=== PATIENT | male | born 1965 | race Caucasian/White ===

== ENCOUNTER 2025-06-07 12:51 | Outpatient (RCR) | payer BC, SELFPAY | END 2025-07-22 08:00 | disposition home or self-care (01) | LOC: CR 12:51 | PROVIDERS: Visit Provider Student in an Organized Health Care Education/Training Program | DX: I25.10 Atherosclerotic heart disease of native coronary artery without angina pectoris (principal); Z95.1 Presence of aortocoronary bypass graft | CPT/HCPCS: 93798 ==

== ENCOUNTER 2025-07-02 14:17 | Outpatient (CLI) | payer BC, SELFPAY ==
--- OUTSIDE RECORDS SUMMARY | 2025-07-02 14:20 | XMS_ITS | Encounter Summary ---
Author Organization [facility] Address [address] [place] [address] Care Team Providers Care Asset Protection Officer Name Role Phone Graciela Mario Primary Care Provider [phone] Jagruti Ferrari MD Unavailable [phone] Encounter Details Date Type Department Care Team (Late st Contact Info) Description 05/14/2025 Orders Only [facility] Cardiothoracic [address], [address] [place] [address] Facundo Núñez PA [address] [place] [address] Social History Tobacco Use Types Packs/Day Years Used Date Smoking Tobacco: Never Smokeless Tobacco: Never Alcohol Use Standard Drinks/Week Comments Never 0 (1 standard drink = 0.6 oz pur e alcohol) PHQ-2 Answer Date Recorded Patient Health Questionnaire-2 Score 0 04/29/2025 Humiliation, Afraid, Rape, and Kick questionnair e Answer Date Recorded Within the last year, have y ou been afraid of your partner or ex-partner? No 04/05/2025 Within the last year, have y ou been humiliated or emotionally abused in other ways by your partner or ex-partner? No Within the last year, have y ou been kicked, hit, slapped, or otherwise physically hurt by your partner or ex-partner? No 04/05/2025 Within the last year, have y ou been raped or forced to have any kind of sexual activity by your partner or ex-partner? No 04/05/2025 AUDIT-C Answer Date Recorded Frequency of Alcohol Consumption Not on file 04/29/2025 Average Number of Drinks Not on file 025 Q3: How often do you have si x or more drinks on one occasion? Never 04/29/2025 Hunger Vital Sign Answer Date Recorded Within the past 12 months, y ou worried that your food would run out before you got the money to buy more. Never true 04/05/20 25 Within the past 12 months, t he food you bought just didn't last and you didn't have money to get more. Never true 04/05/2025 PRAPARE - Transportation Answer Date Re corded In the past 12 months, has l ack of transportation kept you from medical appointments or from getting medications? No 03/18 In the past 12 months, has l ack of transportation kept you from meetings, work, or from getting things needed for daily living? No 04/05/2025 Housing Stability Vital Sign Answer Rene e Recorded In the last 12 months, was t here a time when you were not able to pay the mortgage or rent on time? No 04/05/2025 Number of Times Moved in the Last Year Not on fi le 04/05/2025 At any time in the past 12 m [facility], were you homeless or living in a alf (including now)? No 04/05/2025 CAGE ASSESSMENT Answer Date Recorded Cage unable to access Not on file 04/03/2025 Cage max number of drinks Not on file 2024 Cage Beverages a week Not on file 04/03/2025 Have you ever felt you should CUT down on your d rinking? 0 04/03/2025 Have you been ANNOYED by people criticizing your drinking? 0 04/03/2025 Have you felt GUILTY about your drinking? 0 04/03/2025 Have you had a drink first t ian in the morning (EYE-CEO) to steady your nerves or to get rid of a hangover? 0 04/03/2025 CAGE Questionnaire Score 0 025 Utilities Answer Date Recorded In the past 12 months has th e electric, gas, oil, or water company threatened to shut off services in your home? No 04/05/2025 Sex and Gender Information Value Date Recorded Sex Assigned at Not on file Legal Sex Male 3:37 AM EDT Gender Identity Not on file Sexual Orientation Not on file documented as of this encounter Plan of Treatment Not on file documented as of this encounter Visit Diagnoses Not on filedocumented in this encounter Additional Health Concerns Assessment Noted Time A fall risk assessment has been complete d for the patient 04/29/2025 9:38 AM EDT A Body Mass Index follow-up plan has been documented for the patient 04/29/2025 10:13 AM EDT documented as of this encounter Care Teams Asset Protection Officer Relationship Specialty Start Date End Date Graciela Mario PA [address] [place] [address] PCP - General 03/03/25 Jagruti Ferrari MD [address] [place] [address] [place] [address] Referring Physician 04/09/25 documented as of this encounter
--- OUTSIDE RECORDS SUMMARY | 2025-07-02 14:21 | XMS_ITS | Patient Health Record ---
Author Organization [facility] Address [address] [place] [address] Care Team Providers Care Gauger Chief Name Role Phone KIM ARNOLD Unavailable [phone] Reason For Referral No Information Medications Medication SIG (Take, Route, Fr equency, Duration) Notes Start Date End Date Status Tamsulosin HCl 0.4 MG 1 capsule Orally O nce a day; Duration: 30 day(s) Active Cipro 500 MG 1 tablet Orally ever y 12 hrs; Duration: 10 day(s) Active Social History Tobacco Use: Social History Observation Description Date Details (start date - stop date) Never Smoker NA - NA Tobacco Use/Smoking Question Answer Notes Are you a nonsmoker Additional Findings: Tobacco Non-User Current no n-smoker Problems Problem Type SNOMED Code ICD Code Onset Dates Problem Status W/U Status Risk Notes Problem Bladder neck obstruction (788388899) 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 Problem single functional kidney (finding) (810633680) Solitary kidney (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.0) Active confirmed Problem Obstructive uropathy (1727591) Obstructive uropathy (N13.9) Active confirmed Plan Of Treatment No Information Insurance Providers Payer Name Payer Address Payer Phone Subscriber Number Group Number Insured Name Patient Relationship to Insured Coverage Start Date Coverage End Date [employer] [address] [address] [place] [address] [id number] Brandt Malik Self - patient is the insured Medical (General) History Medical History History ICD Code Donated kidney Prostitus Infection Surgical History Surgery Date(Month/Year) Donated Kidney 08/2012 Hospitalization History Reason Date(Month/Year) Donated Kidney 08/2019
--- OUTSIDE RECORDS SUMMARY | 2025-07-02 14:21 | XMS_ITS | Clinical Summary ---
Author Organization [facility] Address [address] [place] [address] Care Team Providers Care Informatics Physician Name Role Phone FabianoGraciela DONALD Primary Care Provider [phone] Jagruti Ferrari MD Unavailable [phone] Allergies No known active allergies Medications acetaminophen (Tylenol) 325 MG tablet Take 1 tablet by mouth every 4 hours as needed for pain. Under [place] law, monthly prescriptions (30 days) can be refilled at 25 days and three-month prescriptions (90 days) at 80 days. Please contact the insurance company with questions if refills are denied. 100 tablet 04/13/20 25 Active bisacodyl (Dulcolax) 10 MG suppository Insert 1 suppository into the rectum daily as needed for constipation. 12 suppository 04/13/20 25 Active methocarbamol (Robaxin) 500 MG tablet Take 1 tablet by mouth 4 times a day. 30 tablet 04/13/20 25 Active Additional Information Patient not taking.Reported on 04/29/2025 naloxone (Narcan) 4 mg/0.1 mL nasal spray 1. Give 1 spray in nostril for no/slow breathing or cannot wake after opioid use 2. Call 911 3. Repeat in other nostril if symptoms continue 1 each 04/13/20 25 Active nitroglycerin (Nitrostat) 0.[address] 1 tablet under the tongue every 5 minutes as needed for chest pain. Active aspirin 81 MG chewable tablet Chew 1 tablet daily. 30 tablet 3 05/14/20 25 025 Active atorvastatin (Lipitor) 80 MG tablet Take 1 tablet by mouth nightly. 30 tablet 3 07/29 025 Active ezetimibe (Zetia) 10 MG tablet Take 1 tablet by mouth nightly. 30 tablet 3 05/14/20 Active metoprolol tartrate (Lopressor) 50 MG tablet Take 1 tablet by mouth 2 times a day. 60 tablet 3 05/14/20 Active Active Problems Problem Noted Date Diagnosed Date BMI 32.0-32.9,adult 04/29/2025 S/P CABG x 4 04/10/2025 Assessment & Plan (04/10/2025 2:50 PM EDT): -d/c lines as appropriate - ASA, statin, and BB as appropriate Type 2 diabetes mellitus, wi thout long-term current use of insulin 04/05/2025 Assessment & Plan (04/10/2025 2:50 PM EDT): - SSI Assessment & Plan (04/10/2025 7:31 AM EDT): -Insulin gtt -Transition to SSI as appropriate CAD, multiple vessel 04/03/2025 Assessment & Plan (04/10/2025 2:50 PM EDT): Presented to OSH with chest pain and hypertensive crisis LHC at OSH with severe ostial LAD, OM, and PD Now S/P CABG with Dr. Simon 04/09/25 Multimodal pain control ASA, Statin, BB OOB/PT/OT Daily labs and chest xray Assessment & Plan (04/10/2025 7:31 AM EDT): Presented to OSH with chest pain and hypertensive crisis LHC at OSH with severe ostial LAD, OM, and PD Now S/P CABG with Dr. Simon 04/09/25 Multimodal pain control ASA, Statin, BB OOB/PT/OT Daily labs and chest xray Assessment & Plan (04/03/2025 7:16 AM EDT): Presented to OSH with chest pain and hypertensive crisis LHC at OSH with severe ostial LAD, OM, and PD Continue heparin gtt. Repeat troponin, P2Y12, EKG, ECHO pending PFTs, LE dopplers, carotid US, CT chest without pending Cardiothoracic Surgery consulted, appreciate recs HLD (hyperlipidemia) 04/03/2025 Assessment & Plan (04/10/2025 2:50 PM EDT): Continue statin as appropriate Assessment & Plan (04/10/2025 7:31 AM EDT): Continue statin as appropriate Assessment & Plan (04/03/2025 7:16 AM EDT): Continue statin as appropriate Class 2 obesity without serious comorbidity in a dult 04/03/2025 Assessment & Plan (04/10/2025 2:50 PM EDT): BMI: 36.46 Complicates all aspects of care Assessment & Plan (04/10/2025 7:31 AM EDT): BMI: 36.46 Complicates all aspects of care Assessment & Plan (04/03/2025 7:16 AM EDT): BMI: 36.46 Complicates all aspects of care Leukocytosis 04/03/2025 Assessment & Plan (04/10/2025 2:50 PM EDT): -expected in immediate post-op course -continue to check daily labs and monitor for signs of infection WBC Count Date Value Ref Range Status 04/10/2025 14.38 (H) 3.70 - 10.30 10*3/uL Final 04/09/2025 16.51 (H) 3.70 - 10.30 10*3/uL Final 04/09/2025 9.61 3.70 - 10.30 10*3/uL Final Assessment & Plan (04/10/2025 7:31 AM EDT): -expected in immediate post-op course -continue to check daily labs and monitor for signs of infection Solitary kidney, acquired 04/03/2025 Overview (04/03/2025): S/p kidney donation in 2012 Assessment & Plan (04/10/2025 2:50 PM EDT): -Monitor UOP and electrolytes Assessment & Plan (04/10/2025 7:31 AM EDT): -Monitor UOP and electrolytes Hypocalcemia 04/03/2025 Assessment & Plan (04/10/2025 2:50 PM EDT): -Monitor and replace as indicated Assessment & Plan (04/10/2025 7:31 AM EDT): -Monitor and replace as indicated Resolved Problems Problem Noted Date Diagnosed Date Resolved Date ST elevation 04/09/2025 04/13/2025 Assessment & Plan (04/10/2025 2:50 PM EDT): -Noted after bypass, surgery used doppler intra-operatively without concern for flow obstruction -continue to monitor Assessment & Plan (04/10/2025 7:31 AM EDT): -Noted after bypass, surgery used doppler intra-operatively without concern for flow obstruction -continue to monitor On mechanically assisted ventilation 04/09/2025 04/13/2025 Assessment & Plan (04/10/2025 2:50 PM EDT): -expected in immediate post-op window -wean and extubate per protocol -pulm toilet Assessment & Plan (04/10/2025 7:31 AM EDT): -expected in immediate post-op window -wean and extubate per protocol -pulm toilet Grade I diastolic dysfunction 04/07/2025 04/13/2025 Assessment & Plan (04/10/2025 2:50 PM EDT): -Monitor per protocol. Assessment & Plan (04/10/2025 7:31 AM EDT): -Monitor per protocol. JUDIT (acute kidney injury) 04/05/2025 Assessment & Plan (04/10/2025 2:50 PM EDT): -Monitor with daily labs and UOP Assessment & Plan (04/10/2025 7:31 AM EDT): -Monitor with daily labs and UOP Uncontrolled hypertension 04/03/2025 Assessment & Plan (04/10/2025 2:50 PM EDT): Resume home medications as appropriate PRN hydralazine and labetalol Assessment & Plan (04/10/2025 7:31 AM EDT): Resume home medications as appropriate PRN hydralazine and labetalol Nicardipine gtt weaned off prior to transfer to [facility] Assessment & Plan (04/03/2025 7:16 AM EDT): Hx of Resume home medications as appropriate PRN hydralazine and labetalol Nicardipine gtt weaned off prior to transfer to [facility] NSTEMI (non-ST elevated myoc ardial infarction) 04/03/2025 04/13/2025 Assessment & Plan (04/10/2025 2:50 PM EDT): See CAD for details Assessment & Plan (04/10/2025 7:31 AM EDT): See CAD for details Assessment & Plan (04/03/2025 7:16 AM EDT): See CAD for details Hyponatremia 04/03/2025 04/13/2025 Assessment & Plan (04/10/2025 2:50 PM EDT): -Monitor with daily labs Sodium, Plasma Date Value Ref Range Status 04/10/2025 134 (L) 136 - 145 mmol/L Final 04/09/2025 140 136 - 145 mmol/L Final 04/09/2025 140 136 - 145 mmol/L Final Assessment & Plan (04/10/2025 7:31 AM EDT): -Monitor with daily labs Hypophosphatemia 04/03/2025 04/13/2025 Assessment & Plan (04/10/2025 2:50 PM EDT): -Monitor and replace as indicated Assessment & Plan (04/10/2025 7:31 AM EDT): -Monitor and replace as indicated Encounters Date Type Department Care Team Description 05/14/2025 Orders Only [facility] Cardiothoracic [address], [address] [place] [address] Facundo Núñez PA 04/29/2025 9:40 AM EDT Office Visit [facility] Cardiothoracic [address], [address] [place] [address] Nisa Simon MD CAD (coronary artery disease) (Primary Dx) 04/29/2025 8:24 AM EDT - 04/29/2025 11:59 PM EDT Hospital Encounter [facility] Radiology [address] [place] [address] CAD (coronary artery disease) Discharge Disposition: Home or Self Care 04/29/2025 Travel 04/16/2025 Orders Only [facility] [address] [place] [address] Aurora Hanson S/P CABG x 4 (Primary Dx) 04/13/2025 Travel 04/12/2025 Travel 04/11/2025 Travel 04/10/2025 Travel 04/09/2025 7:00 AM EDT - 04/09/2025 1:00 PM EDT Surgery [facility] [address] [place] [address] Nisa Simon MD CABG, 2 OR MORE VESSELS 04/09/2025 7:00 AM EDT Anesthesia Event [facility] [address] [place] [address] Corby Gooden MD Rock, Holly R, PA 04/09/2025 Travel 04/08/2025 Travel 04/03/2025 6:32 AM EDT - 04/13/2025 1:24 PM EDT Hospital Encounter [facility] [address] [place] [id number] Junior Drew, Nisa Vee MD CAD, multiple vessel (Primary Dx) Discharge Disposition: Home or Self Care 04/03/2025 Abstract [facility]FE UTILIZATION REVIEW [address] [place] [address] Kimberli Obregon RN 04/03/2025 Travel 04/03/2025 Orders Only External Location [address] [place] [phone] Provider, External 04/02/2025 Orders Only External Location [address] [place] [phone] Provider, External 04/02/2025 Orders Only External Location [address] [place] [phone] Provider, External from Last 3 Months Social History Tobacco Use Types Packs/Day Years Used Date Smoking Tobacco: Never Smokeless Tobacco: Never Tobacco Cessation:Counseling Given: No Alcohol Use Standard Drinks/Week Comments Never 0 [...] money to buy more. Never true 04/05/20 Within the past 12 months, t he [...] any time in the past 12 m [facility], were you homeless or living in a snf (including now)? 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 or to get [...] on file Sexual Orientation Not on file Last Filed Vital Signs Vital Sign Reading Time Taken Comments Blood Pressure 104/72 04/29/2025 9:33 AM EDT Pulse 81 04/29/2025 9:33 AM EDT Temperature 36.8 C (98.3 F) 04/13/2025 11:14 AM EDT Respiratory Rate 16 04/13/2025 11:14 AM EDT Oxygen Saturation 96% 04/29/2025 9:33 AM EDT Inhaled Oxygen Concentration - - Weight 100 kg (220 lb 9.5 oz) 04/29/2025 9:33 AM EDT Height 176.5 cm (5' 9.5 ) 04/29/2025 9:33 AM EDT Body Mass Index 32.11 04/29/2025 9:33 AM EDT Plan of Treatment Health Maintenance Due Date Last Done Comments [facility]-HIV Screening 1965 [facility]-Hepatitis C Screening 1965 [facility]-Infant/Child/Adol SDOH Screenings 1965 Diabetes: Dental Exam 1973 [facility]-Pneumococcal Vaccine: 50 + Years (1 of 2 - PCV) 1982 CT Colonography 01/13/2008 Colonoscopy 01/13/2008 FIT-DNA 01/13/2008 FIT 01/13/2008 FOBT 01/13/2008 Sigmoidoscopy 01/13/2008 [facility]-Colorectal Cancer Screening 01/13/2008 [facility]-Zoster Vaccines (1 of 2) 2013 [facility]-RSV Vaccine: 60+ Years o r (1 - Risk 60-74 years 1-dose series) 2023 [id number] Vaccine (1 - season) 2025 [facility]-Influenza Vaccine (#1) 2025 [facility]-Diabetes: Hemoglobin A1C 10/01/2025 04/03/2025 [facility]- SDOH Screenings 10/05/2025 [facility]-Adult SDOH Screenings 10/05/2025 04/05/2025 [facility]-Depression Screening 04/29/2026 04/29/2025 [facility]-DTaP,Tdap,and Td Vaccine s (2 - Td or Tdap) 10/31/2029 10/31/2019 [facility]-Obesity Intervention Completed 025, 04/03/2025 HPV Vaccines Aged Out No longer eligi ble based on patient's age to complete this topic [facility]-HIB Vaccines Aged Out No longer e ligible based on patient's age to complete this topic [facility]-Hepatitis A Vaccines Aged Out No longer eligible based on patient's age to complete this topic [facility]-IPV Vaccines Aged Out No longer e ligible based on patient's age to complete this topic [facility]-Rotavirus Vaccines Aged Out No lo nger eligible based on patient's age to complete this topic Procedures Procedure Name Priority Date/Time Associated Diagnosis Comments XR CHEST 2 VIEWS Routine 04/29/2025 8:38 AM EDT CAD (coronary artery disease) CBC W/O DIFFERENTIAL Routine 04/29/2025 8:18 AM EDT CAD (coronary artery disease) BASIC METABOLIC PANEL, PLASMA Routine 04/29/2025 8:18 AM EDT CAD (coronary artery disease) POCT GLUCOSE METER UNSOLICITED RESULTS Routine 04/13/2025 8:48 AM EDT XR CHEST 2 VIEWS Routine 04/13/2025 6:48 AM EDT PHOSPHORUS, PLASMA Routine 04/13/2025 12 :54 AM EDT MAGNESIUM, PLASMA Routine 04/13/2025 12: 54 AM EDT CBC W/O DIFFERENTIAL Routine 04/13/2025 12:54 AM EDT BASIC METABOLIC PANEL, PLASMA Routine 04/13/2025 12:54 AM EDT POCT GLUCOSE METER UNSOLICITED RESULTS Routine 04/12/2025 9:03 PM EDT POCT GLUCOSE METER UNSOLICITED RESULTS Routine 04/12/2025 5:45 PM EDT POCT GLUCOSE METER UNSOLICITED RESULTS Routine 04/12/2025 1:04 PM EDT POCT GLUCOSE METER UNSOLICITED RESULTS Routine 04/12/2025 9:04 AM EDT OXYGEN THERAPY Routine 04/12/2025 8:00 AM EDT EXTRA TUBE LIGHT GREEN TOP Routine 04/12/2025 7:41 AM EDT EXTRA TUBES Routine 04/12/2025 7:41 AM EDT CBC W/O DIFFERENTIAL STAT 04/12/2025 7:41 AM EDT XR CHEST 1 VIEW Routine 04/12/2025 6:07 AM EDT PHOSPHORUS, PLASMA Routine 04/12/2025 5: 11 AM EDT MAGNESIUM, PLASMA Routine 04/12/2025 5:1 1 AM EDT CBC W/O DIFFERENTIAL Routine 04/12/2025 5:11 AM EDT BASIC METABOLIC PANEL, PLASMA Routine 04/12/2025 5:11 AM EDT POCT GLUCOSE METER UNSOLICITED RESULTS Routine 04/11/2025 8:51 PM EDT OXYGEN THERAPY Routine 04/11/2025 8:00 PM EDT POCT GLUCOSE METER UNSOLICITED RESULTS Routine 04/11/2025 5:57 PM EDT POCT GLUCOSE METER UNSOLICITED RESULTS Routine 04/11/2025 12:49 PM EDT POCT GLUCOSE METER UNSOLICITED RESULTS Routine 04/11/2025 8:52 AM EDT OXYGEN THERAPY Routine 04/11/2025 8:00 AM EDT PHOSPHORUS, PLASMA Routine 04/11/2025 5: 54 AM EDT MAGNESIUM, PLASMA Routine 04/11/2025 5:5 4 AM EDT CBC W/O DIFFERENTIAL Routine 04/11/2025 5:54 AM EDT BASIC METABOLIC PANEL, PLASMA Routine 04/11/2025 5:54 AM EDT XR CHEST 1 VIEW Routine 04/11/2025 5:27 AM EDT PEP THERAPY Routine 04/10/2025 9:00 PM EDT POCT GLUCOSE METER UNSOLICITED RESULTS Routine 04/10/2025 8:19 PM EDT PEP THERAPY Routine 04/10/2025 8:00 PM EDT OXYGEN THERAPY Routine 04/10/2025 8:00 PM EDT POCT GLUCOSE METER UNSOLICITED RESULTS Routine 04/10/2025 4:26 PM EDT PEP THERAPY Routine 04/10/2025 4:00 PM EDT MI CRITICAL CARE, ADDL 30 MIN Routine 04/10/2025 12:03 PM EDT CAD, multiple vessel PEP THERAPY Routine 04/10/2025 12:00 PM EDT POCT GLUCOSE METER UNSOLICITED RESULTS Routine 04/10/2025 11:33 AM EDT PEP THERAPY Routine 04/10/2025 9:00 AM EDT NON-INVASIVE VENTILATION Routine 04/10/2025 8:00 AM EDT OXYGEN THERAPY Routine 04/10/2025 8:00 AM EDT POCT GLUCOSE METER UNSOLICITED RESULTS Routine 04/10/2025 7:34 AM EDT PEP THERAPY Routine 04/10/2025 7:30 AM EDT PEP THERAPY Routine 04/10/2025 7:30 AM EDT PEP THERAPY Routine 04/10/2025 7:30 AM EDT PEP THERAPY Routine 04/10/2025 7:30 AM EDT PEP THERAPY Routine 04/10/2025 7:30 AM EDT BLOOD GAS PANEL WITH OXIMETRY, MIXED VENOUS Routine 04/10/2025 6:35 AM EDT POCT GLUCOSE METER UNSOLICITED RESULTS Routine 04/10/2025 6:34 AM EDT POCT GLUCOSE METER UNSOLICITED RESULTS Routine 04/10/2025 6:30 AM EDT ECG ADULT Routine 04/10/2025 3:36 AM EDT XR CHEST 1 VIEW Routine 04/10/2025 2:42 AM EDT PHOSPHORUS, PLASMA Routine 04/10/2025 12 :17 AM EDT MAGNESIUM, PLASMA Routine 04/10/2025 12: 17 AM EDT CBC W/O DIFFERENTIAL Routine 04/10/2025 12:17 AM EDT BASIC METABOLIC PANEL, PLASMA Routine 04/10/2025 12:17 AM EDT POTASSIUM, PLASMA Timed 04/10/2025 12: 17 AM EDT HEMATOCRIT, BLOOD Timed 04/10/2025 12: 17 AM EDT HEMOGLOBIN Timed 04/10/2025 12:17 AM EDT BLOOD GAS PANEL, ARTERIAL Timed 04/10/2025 12:16 AM EDT POCT GLUCOSE METER UNSOLICITED RESULTS Routine 04/10/2025 12:15 AM EDT POTASSIUM, PLASMA Timed 04/09/2025 8:1 8 PM EDT HEMATOCRIT, BLOOD Timed 04/09/2025 8:1 8 PM EDT HEMOGLOBIN Timed 04/09/2025 8:18 PM EDT BLOOD GAS PANEL, ARTERIAL Timed 04/09/2025 8:17 PM EDT NON-INVASIVE VENTILATION Routine 04/09/2025 8:00 PM EDT OXYGEN THERAPY Routine 04/09/2025 8:00 PM EDT NON-INVASIVE VENTILATION Routine 04/09/2025 5:41 PM EDT NON-INVASIVE VENTILATION Routine 04/09/2025 5:41 PM EDT NON-INVASIVE VENTILATION Routine 04/09/2025 5:41 PM EDT BLOOD GAS PANEL, ARTERIAL Timed 04/09/2025 4:21 PM EDT HEMOGLOBIN AND HEMATOCRIT, BLOOD STAT 04/09/2025 4:20 PM EDT BASIC METABOLIC PANEL, PLASMA Routine 04/09/2025 4:20 PM EDT POTASSIUM, PLASMA Timed 04/09/2025 4:2 0 PM EDT BLOOD GAS PANEL, ARTERIAL Routine 04/09/2025 3:01 PM EDT OXYGEN THERAPY Routine 04/09/2025 2:26 PM EDT OXYGEN THERAPY Routine 04/09/2025 2:26 PM EDT OXYGEN THERAPY Routine 04/09/2025 2:26 PM EDT BLOOD GAS PANEL, ARTERIAL STAT 04/09/2025 1:53 PM EDT MI CRITICAL CARE, ADDL 30 MIN Routine 04/09/2025 1:23 PM EDT CAD, multiple vessel XR CHEST 1 VIEW STAT 04/09/2025 1:22 PM EDT BLOOD GAS PANEL WITH OXIMETRY, MIXED VENOUS Routine 04/09/2025 1:09 PM EDT BLOOD GAS PANEL, ARTERIAL STAT 04/09/2025 12:51 PM EDT VENTILATOR - ADULT Routine 04/09/2025 12 :48 PM EDT ECG ADULT STAT 04/09/2025 12:45 PM EDT HEMATOCRIT, BLOOD Timed 04/09/2025 12: 45 PM EDT HEMOGLOBIN Timed 04/09/2025 12:45 PM EDT APTT STAT 04/09/2025 12:45 PM EDT PROTHROMBIN TIME(PT) / INR STAT 04/09/2025 12:45 PM EDT PHOSPHORUS, PLASMA STAT 04/09/2025 12 :45 PM EDT MAGNESIUM, PLASMA STAT 04/09/2025 12: 45 PM EDT BASIC METABOLIC PANEL, PLASMA STAT 04/09/2025 12:45 PM EDT CBC W/O DIFFERENTIAL STAT 04/09/2025 12:45 PM EDT KATERYNA AURIS SURVEILLANCE BY PCR Routine 04/09/2025 12:45 PM EDT MULTI DRUG RESISTANCE TEST Routine 04/09/2025 12:45 PM EDT PEP THERAPY Routine 04/09/2025 12:39 PM EDT PEP THERAPY Routine 04/09/2025 12:39 PM EDT PEP THERAPY Routine 04/09/2025 12:39 PM EDT PEP THERAPY Routine 04/09/2025 12:39 PM EDT PB ANESTHESIA NON-TIMED PROCEDURE PLACEHOLDER Routine 04/09/2025 12:02 PM EDT POCT ARTERIAL BLOOD GAS GEM UNSOLICITED RESULTS Routine 04/09/2025 11:40 AM EDT POCT ACT UNSOLICITED RESULTS Routine 04/09/2025 11:34 AM EDT POCT ARTERIAL BLOOD GAS GEM UNSOLICITED RESULTS Routine 04/09/2025 11:19 AM EDT POCT ACT UNSOLICITED RESULTS Routine 04/09/2025 11:10 AM EDT POCT ARTERIAL BLOOD GAS GEM UNSOLICITED RESULTS Routine 04/09/2025 10:48 AM EDT POCT ACT UNSOLICITED RESULTS Routine 04/09/2025 10:45 AM EDT POCT ARTERIAL BLOOD GAS GEM UNSOLICITED RESULTS Routine 04/09/2025 10:17 AM EDT POCT ACT UNSOLICITED RESULTS Routine 04/09/2025 10:12 AM EDT POCT ARTERIAL BLOOD GAS GEM UNSOLICITED RESULTS Routine 04/09/2025 9:46 AM EDT POCT ACT UNSOLICITED RESULTS Routine 04/09/2025 9:32 AM EDT POCT ACT UNSOLICITED RESULTS Routine 04/09/2025 9:06 AM EDT POCT ARTERIAL BLOOD GAS GEM UNSOLICITED RESULTS Routine 04/09/2025 9:04 AM EDT PB POINT OF CARE IMAGING PLACEHOLDER Routine 04/09/2025 8:19 AM EDT MI INSERT/PLACE FLOW DIRECT CATH Routine 04/09/2025 8:19 AM EDT ANESTHESIA ULTRASOUND GUIDED Routine 04/09/2025 8:19 AM EDT PB ANESTHESIA NON-TIMED PROCEDURE PLACEHOLDER Routine 04/09/2025 8:19 AM EDT MI AN CENTRAL LINE DOUBLE LUMEN Routine 04/09/2025 8:19 AM EDT PB POINT OF CARE IMAGING PLACEHOLDER Routine 04/09/2025 8:19 AM EDT PB ANESTHESIA NON-TIMED PROCEDURE PLACEHOLDER Routine 04/09/2025 8:19 AM EDT PB ANESTHESIA PLACEHOLDER Routine 04/09/2025 7:25 AM EDT MI AN ELECTIVE ENDOTRACHEAL AIRWAY Routine 04/09/2025 7:25 AM EDT POCT ARTERIAL BLOOD GAS GEM UNSOLICITED RESULTS Routine 04/09/2025 7:23 AM EDT POCT ACT UNSOLICITED RESULTS Routine 04/09/2025 7:18 AM EDT CABG, 2 OR MORE VESSELS 04/09/2025 6:45 AM EDT CAD, multiple vessel POCT GLUCOSE METER UNSOLICITED RESULTS Routine 04/09/2025 6:05 AM EDT PREPARE RBC Routine 04/09/2025 6:02 AM EDT CBC W/O DIFFERENTIAL Routine 04/09/2025 4:32 AM EDT POCT GLUCOSE METER UNSOLICITED RESULTS Routine 04/08/2025 7:35 PM EDT POCT GLUCOSE METER UNSOLICITED RESULTS Routine 04/08/2025 12:06 PM EDT XR CHEST 2 VIEWS Routine 04/08/2025 11:3 2 AM EDT TYPE AND SCREEN Routine 04/08/2025 10:42 AM EDT POCT GLUCOSE METER UNSOLICITED RESULTS Routine 04/08/2025 8:01 AM EDT ANTI XA LEVEL UNFRACTIONATED HEPARIN Routine 04/08/2025 4:13 AM EDT MAGNESIUM, PLASMA Routine 04/08/2025 4:1 3 AM EDT BASIC METABOLIC PANEL, PLASMA Routine 04/08/2025 4:13 AM EDT CBC W/O DIFFERENTIAL Routine 04/08/2025 4:13 AM EDT POCT GLUCOSE METER UNSOLICITED RESULTS Routine 04/07/2025 8:12 PM EDT POCT GLUCOSE METER UNSOLICITED RESULTS Routine 04/07/2025 5:31 PM EDT POCT GLUCOSE METER UNSOLICITED RESULTS Routine 04/07/2025 1:26 PM EDT POCT GLUCOSE METER UNSOLICITED RESULTS Routine 04/07/2025 12:52 PM EDT POCT GLUCOSE METER UNSOLICITED RESULTS Routine 04/07/2025 8:29 AM EDT MAGNESIUM, PLASMA Pending Discharge 04/07/2025 3:50 AM EDT COMPREHENSIVE METABOLIC PANEL, PLASMA Pending Discharge 04/07/2025 3:50 AM EDT ANTI XA LEVEL UNFRACTIONATED HEPARIN Pending Discharge 04/07/2025 3:50 AM EDT CBC W/O DIFFERENTIAL Pending Discharge 04/07/2025 3:50 AM EDT POCT GLUCOSE METER UNSOLICITED RESULTS Routine 04/06/2025 8:40 PM EDT POCT GLUCOSE METER UNSOLICITED RESULTS Routine 04/06/2025 5:21 PM EDT POCT GLUCOSE METER UNSOLICITED RESULTS Routine 04/06/2025 12:41 PM EDT POCT GLUCOSE METER UNSOLICITED RESULTS Routine 04/06/2025 8:09 AM EDT ANTI XA LEVEL UNFRACTIONATED HEPARIN Timed 04/06/2025 6:13 AM EDT MAGNESIUM, PLASMA Routine 04/06/2025 6:1 3 AM EDT COMPREHENSIVE METABOLIC PANEL, PLASMA Routine 04/06/2025 6:13 AM EDT CBC W/O DIFFERENTIAL Routine 04/06/2025 6:13 AM EDT ANTI XA LEVEL UNFRACTIONATED HEPARIN Timed 04/06/2025 12:43 AM EDT POCT GLUCOSE METER UNSOLICITED RESULTS Routine 04/05/2025 8:08 PM EDT ANTI XA LEVEL UNFRACTIONATED HEPARIN Timed 04/05/2025 6:18 PM EDT POCT GLUCOSE METER UNSOLICITED RESULTS Routine 04/05/2025 5:52 PM EDT POCT GLUCOSE METER UNSOLICITED RESULTS Routine 04/05/2025 5:09 PM EDT POCT GLUCOSE METER UNSOLICITED RESULTS Routine 04/05/2025 12:44 PM EDT ANTI XA LEVEL UNFRACTIONATED HEPARIN Timed 04/05/2025 11:33 AM EDT POCT GLUCOSE METER UNSOLICITED RESULTS Routine 04/05/2025 9:30 AM EDT POCT GLUCOSE METER UNSOLICITED RESULTS Routine 04/05/2025 8:56 AM EDT POCT GLUCOSE METER UNSOLICITED RESULTS Routine 04/05/2025 8:40 AM EDT ANTI XA LEVEL UNFRACTIONATED HEPARIN Routine 04/05/2025 4:16 AM EDT IONIZED CALCIUM, SERUM Routine 04/05/2025 4:14 AM EDT PHOSPHORUS, PLASMA Routine 04/05/2025 4: 14 AM EDT MAGNESIUM, PLASMA Routine 04/05/2025 4:1 4 AM EDT BASIC METABOLIC PANEL, PLASMA Routine 04/05/2025 4:14 AM EDT CBC W/O DIFFERENTIAL Routine 04/05/2025 4:14 AM EDT POCT GLUCOSE METER UNSOLICITED RESULTS Routine 04/04/2025 7:53 PM EDT POCT GLUCOSE METER UNSOLICITED RESULTS Routine 04/04/2025 4:33 PM EDT POCT GLUCOSE METER UNSOLICITED RESULTS Routine 04/04/2025 12:29 PM EDT ANTI XA LEVEL UNFRACTIONATED HEPARIN Routine 04/04/2025 10:10 AM EDT POCT GLUCOSE METER UNSOLICITED RESULTS Routine 04/04/2025 8:03 AM EDT ANTI XA LEVEL UNFRACTIONATED HEPARIN Routine 04/04/2025 3:02 AM EDT IONIZED CALCIUM, SERUM Routine 04/04/2025 3:02 AM EDT PHOSPHORUS, PLASMA Routine 04/04/2025 3: 02 AM EDT MAGNESIUM, PLASMA Routine 04/04/2025 3:0 2 AM EDT BASIC METABOLIC PANEL, PLASMA Routine 04/04/2025 3:02 AM EDT CBC W/O DIFFERENTIAL Routine 04/04/2025 3:02 AM EDT ANTI XA LEVEL UNFRACTIONATED HEPARIN Routine 04/03/2025 8:53 PM EDT POCT GLUCOSE METER UNSOLICITED RESULTS Routine 04/03/2025 8:23 PM EDT POCT GLUCOSE METER UNSOLICITED RESULTS Routine 04/03/2025 3:55 PM EDT ANTI XA LEVEL UNFRACTIONATED HEPARIN Timed 04/03/2025 1:55 PM EDT POCT GLUCOSE METER UNSOLICITED RESULTS Routine 04/03/2025 12:[address] CHEST WO IV CONTRAST Routine 04/03/2025 10:55 AM EDT VAS US VENOUS DUPLEX LOWER EXTREMITY BILATERAL Routine 04/03/2025 10:41 AM EDT VAS US CAROTID DUPLEX BILATERAL Routine 04/03/2025 10:40 AM EDT HC BREATHING CAPACITY TEST Routine 04/03/2025 10:29 AM EDT TROPONIN T, HIGH SENSITIVITY, 2 HOUR, PLASMA Timed 04/03/2025 9:27 AM EDT PLATELET P2Y12 RECEPTOR BLOCKADE, VERIFY NOW PRU Routine 04/03/2025 9:27 AM EDT ECHO, ADULT TRANSTHORACIC COMPLETE STAT 04/03/2025 8:30 AM EDT XR CHEST 1 VIEW STAT 04/03/2025 7:10 AM EDT LIPID PROFILE, PLASMA Add-On 04/03/2025 6:55 AM EDT ANTI XA LEVEL UNFRACTIONATED HEPARIN Timed 04/03/2025 6:55 AM EDT TROPONIN T, HIGH SENSITIVITY, 0 HOUR, PLASMA, REFLEX TO 2 HOUR STAT 04/03/2025 6:55 AM EDT N-TERMINAL PROBNP, PLASMA STAT 04/03/2025 6:55 AM EDT APTT STAT 04/03/2025 6:55 AM EDT IONIZED CALCIUM, SERUM STAT 04/03/2025 6:55 AM EDT PHOSPHORUS, PLASMA STAT 04/03/2025 6: 55 AM EDT MAGNESIUM, PLASMA STAT 04/03/2025 6:5 5 AM EDT PROTHROMBIN TIME(PT) / INR STAT 04/03/2025 6:55 AM EDT COMPREHENSIVE METABOLIC PANEL, PLASMA STAT 04/03/2025 6:55 AM EDT CBC WITH AUTO DIFFERENTIAL STAT 04/03/2025 6:55 AM EDT TYPE AND SCREEN Routine 04/03/2025 6:55 AM EDT HEMOGLOBIN A1C Routine 04/03/2025 6:55 AM EDT FIBRINOGEN,QUANTITATI VE (CLOTTABLE) Routine 04/03/2025 6:55 AM EDT ECG ADULT STAT 04/03/2025 6:44 AM EDT IR OUTSIDE IMAGES 04/03/2025 2:4 7 AM EDT US OUTSIDE IMAGES 04/02/2025 4:1 9 PM EDT XR THORACIC OUTSIDE IMAGES 04/02/2025 1:54 PM EDT from Last 3 Months Results * XR Chest 2 Views (04/29/2025 8:38 AM EDT) Only the most recent of3 resultswithin the time period is included. Anatomical Region Laterality Modality Chest Digital Radiogra phy Impressions 04/29/2025 12:53 PM EDT Stable exam. CRITICAL RESULT: No. COMMUNICATION: Per this written report. By electronically signing this report, I, the attending physician, attest that I have personally reviewed the images/data for the above examination(s) and agree with the final edited report. Drafted by Ashkan Oliveira on 04/29/2025 8:41 AM Final report signed by Arthur Kendall MD on 04/29/2025 12:53 PM Narrative 04/29/2025 12:53 PM EDT CLINICAL INDICATION: CAD TECHNIQUE: XR CHEST 2 VIEWS COMPARISON: April 13, 2025 FINDINGS: Cardiomediastinal contours with intact sternotomy wires. Stable left pleural effusion. No pneumothorax or focal consolidations. Procedure Note Arthur Kendall MD - 04/29/2025 CLINICAL INDICATION: CAD TECHNIQUE: XR CHEST 2 VIEWS COMPARISON: April 13, 2025 FINDINGS: Cardiomediastinal contours with intact sternotomy wires. Stable leftpleural effusion. No pneumothorax or focal consolidations. IMPRESSION: Stable exam. CRITICAL RESULT: No. COMMUNICATION: Per this written report. By electronically signing this report, I, the attending physician, attestthat I have personally reviewed the images/data for the aboveexamination(s) and agree with the final edited report. Drafted by Ashkan Oliveira on 04/29/2025 8:41 AM Final report signed by Arthur Kendall MD on 04/29/2025 12:53 PM us Nisa Simon MD IMG XR PROCEDURES Final Result * (ABNORMAL) CBC W/O Differential (04/29/2025 8:18 AM EDT) Only the most recent of13 resultswithin the time period is included. WBC Count 10.01 3.70 - 10.30 10*3/uL LAB HEMATOLOGY METHOD 04/29/2025 9:53 AM EDT [facility] RBC Count 4.66 4.60 - 6.10 10*6/uL LAB HEMATOLOGY METHOD 04/29/2025 9:53 AM EDT [facility] HGB 12.6(L) 13.7 - 17.5 g/dL LAB HEMATOLOGY METHOD 04/29/2025 9:53 AM EDT [facility] HCT 39.7(L) 40.0 - 51.0 % LAB HEMATOLOGY METHOD 04/29/2025 9:53 AM EDT [facility] Platelet Count 240 155 - 369 10*3/uL LAB HEMATOLOGY METHOD 04/29/2025 9:53 AM EDT [facility] MCV 85 79 - 98 fL LAB HEMATOLOGY METHOD 04/29/2025 9:53 AM EDT [facility] MCH 27.0 26.0 - 32.0 pg LAB HEMATOLOGY METHOD 04/29/2025 9:53 AM EDT [facility] MCHC 31.7 30.7 - 35.5 g/dL LAB HEMATOLOGY METHOD 04/29/2025 9:53 AM EDT [facility] RDW 13.3 11.5 - 14.5 % LAB HEMATOLOGY METHOD 04/29/2025 9:53 AM EDT [facility] MPV 10.6 8.8 - 12.5 fL LAB HEMATOLOGY METHOD 04/29/2025 9:53 AM EDT [facility] nRBC 0.0 <=0.0 per 100 WBCs LAB HEMATOLOGY METHOD 04/29/2025 9:53 AM EDT [facility] Blood Venous blood specimen / Unknown Venipuncture / Unknown 04/29/2025 8:18 AM EDT 04/29/2025 8:18 AM EDT us Nisa Simon MD LAB BLOOD ORDERABLES Final Res ult [facility] [address] [place] [address] * (ABNORMAL) Basic Metabolic Panel, Plasma (04/29/2025 8:18 AM EDT) Only the most recent of10 resultswithin the time period is included. Glucose, Plasma 113(H) 74 - 99 mg/dL 04/29/2025 10:04 AM EDT [facility] BUN, Plasma 14 8 - 23 mg/dL 04/29/2025 10:04 AM EDT [facility] Creatinine, Plasma 1.30(H) 0.70 - 1.20 mg/dL 04/29/2025 10:04 AM EDT [facility] BUN/Creatinine Ratio 11 04/29/2025 10:04 AM EDT [facility] Sodium, Plasma 137 136 - 145 mmol/L 04/29/2025 10:04 AM EDT [facility] Potassium, Plasma 4.6 3.6 - 4.9 mmol/L 04/29/2025 10:04 AM EDT [facility] Chloride, Plasma 103 97 - 107 mmol/L 04/29/2025 10:04 AM EDT [facility] CO2, Plasma 23 22 - 29 mmol/L 04/29/2025 10:04 AM EDT [facility] Anion Gap 11 6 - 16 mmol/L 04/29/2025 10:04 AM EDT [facility] Total Calcium, Plasma 9.2 8.9 - 10.2 mg/dL 04/29/2025 10:04 AM EDT [facility] eGFRcr 62.1 mL/min/1.7 3m*2 04/29/2025 10:04 AM EDT [facility] Comment:Reported eGFRcr in m L/min/1.73m2 is based the CKD-EPI 2020 equation that does not use a race coefficient. Blood Venous blood specimen / Unknown Venipuncture / Unknown 04/29/2025 8:18 AM EDT 04/29/2025 8:18 AM EDT Nisa Simon MD LAB BLOOD ORDERABLES Final Res ult [facility] [address] [place] [address] * (ABNORMAL) POCT glucose meter (04/13/2025 8:48 AM EDT) Only the most recent of43 resultswithin the time period is included. POCT Glucose 129(H) 74 - 99 mg/dL 04/13/2025 8:50 AM EDT [facility] Comment:Accuracy of a glucos e result obtained from a capillary whole blood specimen relies upon adequate, non-compromised capillary blood flow. If the capillary glucose result is not consistent with the patient's clinical signs and symptoms, glucose testing should be repeated with either an arterial or venous sample on the glucometer or sent to the main labortory for testing. Comment 04/13/2025 8:50 AM EDT [facility] Supervisor Feed House ID Eliza Doll 8:50 AM EDT [facility] Device ID [id number] 04/13/2025 8:50 AM EDT [facility] Specimen Type POC Capillary 04/13/2025 8:50 AM EDT [facility] Blood Capillary blood specimen / Unknown 04/13/2025 8:48 AM EDT 04/13/2025 8:50 AM EDT us Nisa Simon MD LAB POINT OF CARE TE ST DOCKED DEVICE UNSOLICITED RESULTS Final Result Performing Organization Address City/[facility] Co de Phone Number [facility] [address] [place] [address] * Phosphorus (04/13/2025 12:54 AM EDT) Only the most recent of8 resultswithin the time period is included. Phosphorus, Plasma 3.1 2.5 - 4.5 mg/dL 04/13/2025 1:42 AM EDT [facility] Blood Venous blood specimen / Unknown Venipuncture / Unknown 04/13/2025 12:54 AM EDT 04/13/2025 1:13 AM EDT us Nisa Simon MD LAB BLOOD ORDERABLES Final Res ult Performing Organization Address [facility] de Phone Number [facility] [address] [place] [address] * Magnesium (04/13/2025 12:54 AM EDT) Only the most recent of11 resultswithin the time period is included. Magnesium, Plasma 2.3 1.9 - 2.4 mg/dL 04/13/2025 1:42 AM EDT [facility] Blood Venous blood specimen / Unknown Venipuncture / Unknown 04/13/2025 12:54 AM EDT 04/13/2025 1:13 AM EDT us Nisa Simon MD LAB BLOOD ORDERABLES Final Res ult Performing Organization Address [facility] de Phone Number [facility] [address] [place] [address] * Light Green Top (04/12/2025 7:41 AM EDT) Extra Hold for add-ons 04/12/2025 10:02 AM EDT [facility] Comment:Auto resulted. Blood Venous blood specimen / Unknown 04/12/2025 7:41 AM EDT 04/12/2025 7:46 AM EDT us Nisa Simon MD LAB BLOOD ORDERABLES Final Res ult [facility] [address] [place] [address] * XR Chest 1 View (04/12/2025 6:07 AM EDT) Only the most recent of5 resultswithin the time period is included. Anatomical Region Laterality Modality Chest Digital Radiogra phy Impressions 04/12/2025 11:52 AM EDT No significant interval change. CRITICAL RESULT: No. COMMUNICATION: Per this written report. By electronically signing this report, I, the attending physician, attest that I have personally reviewed the images/data for the above examination(s) and agree with the final edited report. Drafted by Juan Bernstein MD on 04/12/2025 11:24 AM Final report signed by Russell Blevins MD on 04/12/2025 11:52 AM Narrative 04/12/2025 11:52 AM EDT CLINICAL INDICATION: Post-Op Cardiac Surgery TECHNIQUE: XR CHEST 1 VIEW COMPARISON: Chest radiograph 04/11/25 FINDINGS: Redemonstrated postsurgical changes in the thorax. No new consolidation. No pneumothorax. Probable small left pleural effusion. Unchanged cardiomegaly. Procedure Note Russell Blevins MD - 04/12/2025 CLINICAL INDICATION: Post-Op Cardiac Surgery TECHNIQUE: XR CHEST 1 VIEW COMPARISON: Chest radiograph 04/11/25 FINDINGS: Redemonstrated postsurgical changes in the thorax. No new consolidation.No pneumothorax. Probable small left pleural effusion. Unchangedcardiomegaly. IMPRESSION: No significant interval change. CRITICAL RESULT: No. COMMUNICATION: Per this written report. By electronically signing this report, I, the attending physician, attestthat I have personally reviewed the images/data for the aboveexamination(s) and agree with the final edited report. Drafted by Juan Bernstein MD on 04/12/2025 11:24 AM Final report signed by Russell Blevins MD on 04/12/2025 11:52 AM us Nisa Simon MD IMG XR PROCEDURES Final Result * MI CRITICAL CARE, ADDL 30 MIN (04/10/2025 12:03 PM EDT) Narrative James Palma MD - 04/10/2025 12:03 PM EDT James Palma MD 04/10/2025 2:50 PM Critical Care Performed by: James Palma MD Authorized by: James Palma MD Critical care provider statement: Critical care time (minutes): 35 Critical care time was exclusive of: Separately billable procedures and treating other patients and teaching time Critical care was time spent personally by me on the following activities: Development of treatment plan with patient or surrogate, ordering and performing treatments and interventions, ordering and review of laboratory studies, ordering and review of radiographic studies, evaluation of patient's response to treatment, examination of patient and obtaining history from patient or surrogate I assumed subsequent critical care for this patient from a provider in my division, on the same day: yes Critical care statement: I saw and evaluated the patient with the resident/ fellow. I discussed the case with the resident/ fellow and agree with the findings and plan as documented. us James Palma MD IN CLINIC/BEDSIDE ORDERABLE S Final Result * (ABNORMAL) Blood gas panel with oximetry, mixed venous (04/10/2025 6:35 AM EDT) Only the most recent of2 resultswithin the time period is included. pH, Mixed Venous 7.38 7.32 - 7.43 LAB HEMATOLOGY METHOD 04/10/2025 6:46 AM EDT [facility] pCO2, Mixed Venous 44 40 - 55 mmHg LAB HEMATOLOGY METHOD 04/10/2025 6:46 AM EDT [facility] pO2, Mixed Venous 33 25 - 40 mmHg LAB HEMATOLOGY METHOD 04/10/2025 6:46 AM EDT [facility] SO2, Measured, Mixed Venous 61(L) 65 - 80 % LAB HEMATOLOGY METHOD 04/10/2025 6:46 AM EDT [facility] Bicarbonate, Calculated, Mixed Venous 26 22 - 26 mmol/L LAB HEMATOLOGY METHOD 04/10/2025 6:46 AM EDT [facility] Base Excess, Mixed Venous 0.3 -2.0 - 3.0 mmol/L LAB HEMATOLOGY METHOD 04/10/2025 6:46 AM EDT [facility] Hematocrit, Whole Blood 34.5(L) 40.0 - 51.0 % LAB HEMATOLOGY METHOD 04/10/2025 6:46 AM EDT [facility] Sodium, Whole Blood 133(L) 136 - 145 mmol/L LAB HEMATOLOGY METHOD 04/10/2025 6:46 AM EDT [facility] Potassium, Whole Blood 4.5 3.6 - 4.9 mmol/L LAB HEMATOLOGY METHOD 04/10/2025 6:46 AM EDT [facility] Chloride, Whole Blood 101 97 - 107 mmol/L LAB HEMATOLOGY METHOD 04/10/2025 6:46 AM EDT [facility] Ionized Calcium, Whole Blood 4.4(L) 4.6 - 5.1 mg/dL LAB HEMATOLOGY METHOD 04/10/2025 6:46 AM EDT [facility] Glucose, Whole Blood 143(H) 74 - 99 mg/dL LAB HEMATOLOGY METHOD 04/10/2025 6:46 AM EDT [facility] Oxyhemoglobin, Mixed Venous, Whole Blood 59.7 40.0 - 70.0 % LAB HEMATOLOGY METHOD 04/10/2025 6:46 AM EDT [facility] Hemoglobin Reduced, Mixed Venous, Whole Blood 37.9 % LAB HEMATOLOGY METHOD 04/10/2025 6:46 AM EDT [facility] Total Hemoglobin, Mixed Venous, Whole Blood 11.2(L) 13.7 - 17.5 g/dL LAB HEMATOLOGY METHOD 04/10/2025 6:46 AM EDT [facility] Blood Mixed venous blood specimen / Unknown Venipuncture / Unknown 04/10/2025 6:35 AM EDT 04/10/2025 6:45 AM EDT us Nisa Simon MD LAB BLOOD ORDERABLES Final Res ult [facility] [address] [place] [address] * ECG Adult - POD 1 (04/10/2025 3:36 AM EDT) Only the most recent of3 resultswithin the time period is included. EKG DIAGNOSIS CLASS Abnormal MUSE ECG Ventricular Rate 107 BPM MUSE ECG Atrial Rate 107 BPM MUSE ECG MI Interval 182 ms MUSE ECG QRSD Interval 126 ms MUSE ECG QT Interval 348 ms MUSE ECG QTC Interval 464 ms MUSE ECG P [place] 52 degrees MUSE ECG R [place] 267 degrees MUSE ECG T Wave [place] 23 degrees MUSE ECG Diagnosis Sinus tachycardia MUSE ECG Diagnosis Right bundle branch block MUSE ECG Diagnosis Inferior infarct , age undetermined MUSE ECG Diagnosis Abnormal ECG MUSE ECG Diagnosis MUSE ECG Diagnosis Confirmed by Elroy Marte ([id number]) on 04/10/2025 7:53:06 AM MUSE ECG 04/10/2025 3:36 AM EDT 04/10/2025 7:53 AM EDT Leroy BENNETT ECG ORDERABLES Final Result Performing Organization Address City/[facility]/ZIP Co de Phone Number MUSE ECG * (ABNORMAL) Hemoglobin (04/10/2025 12:17 AM EDT) Only the most recent of3 resultswithin the time period is included. HGB 11.3(L) 13.7 - 17.5 g/dL LAB HEMATOLOGY METHOD 04/10/2025 12:40 AM EDT [facility] Blood Venous blood specimen / Unknown Venipuncture / Unknown 04/10/2025 12:17 AM EDT 04/10/2025 12:28 AM EDT Leroy BENNETT LAB BLOOD ORDERABLES Final Resu lt [facility] [address] [place] [address] * (ABNORMAL) Hematocrit (04/10/2025 12:17 AM EDT) Only the most recent of3 resultswithin the time period is included. HCT 33.7(L) 40.0 - 51.0 % LAB HEMATOLOGY METHOD 04/10/2025 12:40 AM EDT [facility] Blood Venous blood specimen / Unknown Venipuncture / Unknown 04/10/2025 12:17 AM EDT 04/10/2025 12:28 AM EDT us Leroy BENNETT LAB BLOOD ORDERABLES Final Resu lt Performing Organization Address City/[facility]/ZIP Co de Phone Number [facility] [address] [place] [address] * Potassium, Plasma (04/10/2025 12:17 AM EDT) Only the most recent of3 resultswithin the time period is included. Potassium, Plasma 4.9 3.6 - 4.9 mmol/L 04/10/2025 12:58 AM EDT [facility] Blood Venous blood specimen / Unknown Venipuncture / Unknown 04/10/2025 12:17 AM EDT 04/10/2025 12:28 AM EDT [facility] BENNETT LAB BLOOD ORDERABLES Final Resu lt Performing Organization Address [facility] Co de Phone Number [facility] [address] [place] [address] * (ABNORMAL) Blood gas, arterial (04/10/2025 12:16 AM EDT) Only the most recent of6 resultswithin the time period is included. pH, Arterial 7.42 7.31 - 7.42 LAB HEMATOLOGY METHOD 04/10/2025 12:36 AM EDT [facility] pCO2, Arterial 36 32 - 45 mmHg LAB HEMATOLOGY METHOD 04/10/2025 12:36 AM EDT [facility] pO2, Arterial 65(L) >80 mmHg LAB HEMATOLOGY METHOD 04/10/2025 12:36 AM EDT [facility] SO2, Measured, Arterial 94 94 - 98 % LAB HEMATOLOGY METHOD 04/10/2025 12:36 AM EDT [facility] Base Excess, Arterial -0.9 -2.0 - 3.0 mmol/L LAB HEMATOLOGY METHOD 04/10/2025 12:36 AM EDT [facility] Bicarbonate, Calculated, Arterial 23 22 - 26 mmol/L LAB HEMATOLOGY METHOD 04/10/2025 12:36 AM EDT [facility] Hematocrit, Whole Blood 33.8(L) 40.0 - 51.0 % LAB HEMATOLOGY METHOD 04/10/2025 12:36 AM EDT [facility] Sodium, Whole Blood 134(L) 136 - 145 mmol/L LAB HEMATOLOGY METHOD 04/10/2025 12:36 AM EDT [facility] Potassium, Whole Blood 4.6 3.6 - 4.9 mmol/L LAB HEMATOLOGY METHOD 04/10/2025 12:36 AM EDT [facility] Chloride, Whole Blood 103 97 - 107 mmol/L LAB HEMATOLOGY METHOD 04/10/2025 12:36 AM EDT [facility] Glucose, Whole Blood 159(H) 74 - 99 mg/dL LAB HEMATOLOGY METHOD 04/10/2025 12:36 AM EDT [facility] Ionized Calcium, Whole Blood 4.4(L) 4.6 - 5.1 mg/dL LAB HEMATOLOGY METHOD 04/10/2025 12:36 AM EDT [facility] Lactate, Arterial, Whole Blood 1.4 0.5 - 1.6 mmol/L LAB HEMATOLOGY METHOD 04/10/2025 12:36 AM EDT [facility] Blood Arterial blood specimen / Unknown Arterial Puncture / Unknown 04/10/2025 12:16 AM EDT 04/10/2025 12:30 AM EDT us Leroy BENNETT LAB BLOOD ORDERABLES Final Resu lt Performing Organization Address City/State/[facility] Co de Phone Number [facility] [address] [place] [address] * (ABNORMAL) Hemoglobin and Hematocrit, Blood (04/09/2025 4:20 PM EDT) HGB 11.1(L) 13.7 - 17.5 g/dL LAB HEMATOLOGY METHOD 04/09/2025 5:05 PM EDT [facility] HCT 33.5(L) 40.0 - 51.0 % LAB HEMATOLOGY METHOD 04/09/2025 5:05 PM EDT [facility] Blood Venous blood specimen / Unknown Venipuncture / Unknown 04/09/2025 4:20 PM EDT 04/09/2025 4:57 PM EDT us Nisa Simon MD LAB BLOOD ORDERABLES Final Res ult [facility] [address] [place] [address] * MI CRITICAL CARE, ADDL 30 MIN (04/09/2025 1:23 PM EDT) Narrative James Palma MD - 04/09/2025 1:23 PM EDT James Palma MD 04/10/2025 7:31 AM Critical Care Performed by: James Palma MD Authorized by: James Palma MD Critical care provider statement: Critical care time (minutes): 40 Critical care time was exclusive of: Separately billable procedures and treating other patients and teaching time Critical care was time spent personally by me on the following activities: Development of treatment plan with patient or surrogate, ordering and performing treatments and interventions, ordering and review of laboratory studies, ordering and review of radiographic studies, evaluation of patient's response to treatment, examination of patient and ventilator management I assumed subsequent critical care for this patient from a provider in my division, on the same day: yes Critical care statement: I saw and evaluated the patient with the resident/ fellow. I discussed the case with the resident/ fellow and agree with the findings and plan as documented. us James Palma MD IN CLINIC/BEDSIDE ORDERABLE S Final Result * Kateryna auris Surveillance by PCR (04/09/2025 12:45 PM EDT) Kateryna auris PCR Result Not Detected Not Detected 04/10/2025 11:53 AM EDT [facility] Swab (Axilla and Groin) Non-blood Collection / Unknown 04/09/2025 12:45 PM EDT 04/09/2025 12:59 PM EDT Narrative [facility] - 04/10/2025 11:53 AM EDT This PCR assay was developed and its performance characteristics determined by [facility] as appropriate for clinical purposes. This assay has not been cleared or approved by the FDA, but is performed in a CLIA regulated laboratory that is qualified to perform high-complexity testing. This PCR assay was developed and its performance characteristics determined by [facility] as appropriate for clinical purposes. This assay has not been cleared or approved by the FDA, but is performed in a CLIA regulated laboratory that is qualified to perform high-complexity testing. [facility] LAB MICROBIOLOGY - GENERAL ORDE RABFARHAD Final Result Performing Organization Address [facility] Co de Phone Number [facility] [address] [place] [address] * Multi Drug Resistance Test (04/09/2025 12:45 PM EDT) Culture No growth at day 1 04/10/2025 2:10 PM EDT [facility] Swab (Nares and Linsey Rectal) Non-blood Collection / Unknown 04/09/2025 12:45 PM EDT 04/09/2025 12:59 PM EDT Narrative [facility] - 04/10/2025 2:10 PM EDT This test was developed and its performance characteristics determined by the [facility]. Although the media is FDA-approved, it is not FDA-approved for all specimen types submitted. The FDA has determined that such clearance or approval is not necessary. This test is used for surveillance purposes. It should not be regarded as investigational or for research. The [facility] is certified under the Clinical Laboratory Improvement Amendments of 1988 (CLIA-88) as qualified to perform high complexity clinical laboratory testing. [facility] MICROBIOLOGY - GENERAL ORDE DESMOND Final Result Performing Organization Address [facility] de Phone Number [facility] [address] [place] [address] * (ABNORMAL) APTT (04/09/2025 12:45 PM EDT) Only the most recent of2 resultswithin the time period is included. aPTT 38(H) 25 - 35 sec LAB COAGULATION METHOD 04/09/2025 1:16 PM EDT [facility] Blood Venous blood specimen / Unknown Venipuncture / Unknown 04/09/2025 12:45 PM EDT 04/09/2025 1:02 PM EDT [facility]ENNET[facility] LAB BLOOD ORDERABLES Final Resu lt Performing Organization Address City/[facility]/ZIP Co de Phone Number [facility] [address] [place] [address] * (ABNORMAL) Protime-INR (04/09/2025 12:45 PM EDT) Only the most recent of2 resultswithin the time period is included. Prothrombin Time 16.9(H) 12.0 - 14.3 sec LAB COAGULATION METHOD 04/09/2025 1:16 PM EDT [facility] INR 1.3(H) 0.9 - 1.1 LAB COAGULATION METHOD 04/09/2025 1:16 PM EDT [facility] Blood Venous blood specimen / Unknown Venipuncture / Unknown 04/09/2025 12:45 PM EDT 04/09/2025 1:02 PM EDT Narrative [facility] - 04/09/2025 1:16 PM EDT OPTIMAL INR RANGES FOR PATIENT ON ORAL ANTICOAGULANT THERAPY Prevention of venous thromboembolism INR 2.0 to 3.0 In patients with heart disease: Atrial fibrillation INR 2.0 to 3.0 Valvular heart disease INR 2.0 to 3.0 Tissue heart valves INR 2.0 to 3.0 Mechanical prosthetic valves INR 2.5 to 3.5 Prevention of recurrent UT INR 2.5 to 3.5 [facility] LAB BLOOD ORDERABLES Final Resu lt Performing Organization Address [facility] Co de Phone Number [facility] [address] [place] [address] * PB ANESTHESIA NON-TIMED PROCEDURE PLACEHOLDER (04/09/2025 12:02 PM EDT) BSA 2.28 m2 CAR DO NOT SEND Narrative CAR DO NOT SEND - 04/09/2025 12:02 PM EDT Corby Gooden MD 04/09/2025 11:38 PM Procedure Performed: DANGELO General Procedure Information Diagnostic Indications for DANGELO: assessment of ascending aorta, assessment of surgical repair, defect repair evaluation, hemodynamic monitoring Physician Requesting Echo: Nisa Simon MD Location performed: OR Modalities: 2D only, 3D only, color flow mapping, continuous wave Dopper and pulse wave doppler Consent given by: PatientIntubated Bite block placed Heart visualized Probe Insertion: Easy Probe Type: Multiplane Preanesthesia Checklist: Patient identified, IV checked, risks and benefits discussed, surgical consent, monitors and equipment checked and pre-op evaluation. Echocardiographic and Doppler Measurements Ventricles Right Ventricle: Cavity size mildly dilated. Hypertrophy not present. Global function normal. Left Ventricle: Cavity size normal. Hypertrophy present. Thrombus not present. Global Function mildly impaired. Ejection Fraction 52%. Other Ventricular Findings: No RWMA Valves Aortic Valve: Annulus normal. Stenosis not present. Regurgitation absent. Leaflets thickened. Leaflet motions normal. Mitral Valve: Annulus normal. Stenosis not present. Regurgitation +1. Leaflets normal. Leaflet motions normal. Tricuspid Valve: Annulus normal. Stenosis not present. Regurgitation +1. Leaflets normal. Leaflet motions normal. Pulmonic Valve: Annulus normal. Stenosis not present. Regurgitation +1. Leaflets normal. Aorta Ascending Aorta: Size normal. Dissection not present. Plaque thickness less than 3 mm. Mobile plaque not present. Aortic Arch: Size normal. Dissection not present. Plaque thickness less than 3 mm. Mobile plaque not present. Descending Aorta: Size normal. Dissection not present. Plaque thickness less than 3 mm. Mobile plaque not present. Atria Right Atrium: Size normal. Spontaneous echo contrast not present. Thrombus not present. Tumor not present. Left Atrium: Size normal. Spontaneous echo contrast not present. Thrombus not present. Tumor not present. Left atrial appendage normal. Septa Atrial Septum: Intra-atrial septal morphology lipomatous hypertrophy and contains patent foramen ovale. Patent foramen ovale shunts left to right. Other atrial septal defect findings: Suspicious for tiny PFO with L to R shunt Ventricular Septum: Intra-ventricular septum morphology normal. Other Findings Pericardium: normal Pleural Effusion: none Pulmonary Arteries: normal Pulmonary Venous Flow: normal Postprocedure Post Cardiac Surgery/Repair: Right ventricular post CPB function is preserved. Left ventricular post CPB function is preserved. All valve function preserved. Anesthesia Information Performed Resident Anesthesiologist: Corby Gooden MD Resident: Tyrone Hernandez MD Echocardiogram Comments: 60 y.o. male with mvCAD undergoing CABG PreCPB: - Mild concentric LVH. LV function borderline EF 52% by 3D. No regional wall motion abnormalities. RV mildly dilated with normal function. - AV trileaflet with thickened leaflets, no stenosis or insufficiency. Trace MR, trace TR, trace PI. - Suspicious for tiny PFO with L to R shunt. 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 However, when compared to pre-bypass the inferior wall motion appears similar to prebypass. RV function preserved. - Valvular function unchanged - Aorta intact following decannulation Corby Gooden MD ANESTHESIA ORDERABLES Lucia singh Result CAR DO NOT SEND [address] * (ABNORMAL) POCT arterial blood gas gem (04/09/2025 11:40 AM EDT) Only the most recent of7 resultswithin the time period is included. pH, Arterial 7.31 7.31 - 7.42 04/09/2025 11:41 AM EDT [facility] pCO2, Arterial 44 32 - 45 mm Hg 04/09/2025 11:41 AM EDT [facility] pO2, Arterial 265 >80 mm Hg 04/09/2025 11:41 AM EDT [facility] SO2, Arterial 100(H) 94 - 98 % 04/09/2025 11:41 AM EDT [facility] Base Excess, Arterial -4.0(L) -2 - 3 mmol/L 04/09/2025 11:41 AM EDT [facility] HCO3, Arterial 22.2 22 - 26 mmol/L 04/09/2025 11:41 AM EDT [facility] Total Hemoglobin, Arterial, Whole Blood 11.3(L) 13.7 - 17.5 g/dL 04/09/2025 11:41 AM EDT [facility] Hematocrit, Arterial 34.0(L) 40 - 51.0 % 04/09/2025 11:41 AM EDT [facility] Sodium, Arterial 134(L) 136 - 145 mmol/L 04/09/2025 11:41 AM EDT [facility] Potassium, Arterial 5.1(H) 3.6 - 4.9 mmol/L 04/09/2025 11:41 AM EDT [facility] Chloride, Whole Blood 105 97 - 107 mmol/L 04/09/2025 11:41 AM EDT [facility] Glucose, Arterial 170(H) 74 - 99 mg/dL 04/09/2025 11:41 AM EDT [facility] Ionized Calcium, Arterial 4.7 4.6 - 5.1 mg/dL 04/09/2025 11:41 AM EDT [facility] Lactate, Arterial 1.9(H) 0.5 - 1.6 mmol/L 04/09/2025 11:41 AM EDT [facility] Body Temperature 37.0 Celsius 04/09/2025 11:41 AM EDT [facility] pH, Temp Corrected, Arterial 7.31 7.31 - 7.42 04/09/2025 11:41 AM EDT [facility] pCO2, Temp Corrected, Arterial 44 32 - 45 mm Hg 04/09/2025 11:41 AM EDT [facility] pO2, Temp Corrected, Arterial 265 >80 mm Hg 04/09/2025 11:41 AM EDT [facility] Supervisor [employer] ID Donnell Nicole 04/09/2025 11:41 AM EDT [facility] Blood, Arterial Whole blood specimen / Unknown 04/09/2025 11:40 AM EDT 04/09/2025 11:41 AM EDT Nisa Simon MD LAB POINT OF CARE TE ST DOCKED DEVICE UNSOLICITED RESULTS Final Result [facility] [address] [place] [address] * POCT ACT (04/09/2025 11:34 AM EDT) Only the most recent of7 resultswithin the time period is included. [facility] ACT+ (HIGH RANGE) 115 68 - 600 Seconds 04/11/2025 12:30 PM EDT [facility] Supervisor Feed House ID BibiZaira castro 04/11/2025 12:30 PM EDT [facility] ACT Device ID [id number] 04/11/2025 12:30 PM EDT [facility] Comment 04/11/2025 12:30 PM EDT [facility] Comment: ACT performed by staff at point of care. Results are reported immediately to the physician or primary caregiver. The activated clotting time is performed on patients with diverse clinical characteristics and treatment histories. Therefore, expected values are variable and results must be interpreted in the context of each individual patient. Blood Venous blood specimen / Unknown 04/09/2025 11:34 AM EDT 04/11/2025 12:30 PM EDT Nisa Simon MD LAB POINT OF CARE TE ST DOCKED DEVICE UNSOLICITED RESULTS Final Result [facility] [address] [place] [address] [place] [address] * MI AN CENTRAL LINE DOUBLE LUMEN, PB ANESTHESIA NON-TIMED PROCEDURE PLACEHOLDER, ANESTHESIA ULTRASOUND GUIDED, MI INSERT/PLACE FLOW DIRECT CATH, PB POINT OF CARE IMAGING PLACEHOLDER (04/09/2025 8:19 AM EDT) Corby Turner MD - 04/09/2025 8:19 AM EDT Corby Gooden MD 04/09/2025 12:03 PM Central Venous Line: A central venous line was placed in the OR for the following indication(s): central venous access and CVP monitoring. Sterility preparation included the following: provider hand hygiene performed prior to central venous catheter insertion, all 5 sterile barriers used (gloves, gown, cap, mask, large sterile drape) during central venous catheter insertion, antiseptic used during central venous catheter insertion and skin prep agent completely dried prior to procedure. The patient was placed in Trendelenburg position. Right internal jugular vein was prepped. The site was prepped with Chlorhexidine. A 9 Fr (size), 11.5 (length), introducer double lumen was placed. This catheter was an oximetric catheter. During the procedure, the following specific steps were taken: target vein identified, needle advanced into vein and blood aspirated and guidewire advanced into vein. Seldinger technique used Procedure performed using ultrasound guidance Sterile gel and probe cover used in ultrasound-guided central venous catheter insertion. Intravenous verification was obtained by ultrasound, venous blood return and transducer. Post insertion care included: all ports aspirated, all ports flushed easily, guidewire removed intact, Biopatch applied, line sutured in place and dressing applied. During the procedure the patient experienced: patient tolerated procedure well with no complications. PA Catheter Placed A oximetric, 8 (size) Pulmonary Artery Catheter (PAC) was placed through the Introducer CVL in the right internal jugular vein. The PAC placement was confirmed by pressure tracing changes and DANGELO and secured at 46 cm (depth). The patient experienced the following events during the procedure: patient tolerated procedure well with no complications. Staffing Performed: Resident Anesthesiologist: Corby Gooden MD Resident: Donnell Li MD Ultrasound was used to visualize vascular needle entry into the internal jugular vessel AND ultrasound image was retained. Ultrasound was used to visualize vascular needle entry into the internal jugular vein AND ultrasound image was retained. Corby Gooden MD ANESTHESIA ORDERABLES Lucia l Result * PB ANESTHESIA NON-TIMED PROCEDURE PLACEHOLDER, PB POINT OF CARE IMAGING PLACEHOLDER (04/09/2025 8:19 AM EDT) Corby Turner MD - 04/09/2025 8:19 AM EDT Corby Gooden MD 04/09/2025 12:03 PM Arterial Line: An arterial line was placed. Procedure performed using ultrasound guidance in the OR for the following indication(s): continuous blood pressure monitoring and blood sampling needed. Ultrasound was used to visualize vascular needle entry into the radial artery AND ultrasound image was retained. A 20 gauge (size), 1 and 3/4 inch (length), Arrow (type) catheter was placed into the Right radial artery and secured by suture. Seldinger technique used Events: patient tolerated procedure well with no complications. Staffing Performed: Resident Anesthesiologist: Corby Gooden MD Resident: Donnell Li MD Corby Gooden MD ANESTHESIA ORDERABLES Lucia l Result * MI AN ELECTIVE ENDOTRACHEAL AIRWAY, PB ANESTHESIA PLACEHOLDER (04/09/2025 7:25 AM EDT) Corby Turner MD - 04/09/2025 7:25 AM EDT Corby Gooden MD 04/09/2025 12:02 PM Airway Date/Time: 04/09/2025 7:25 AM Reason: elective Airway not difficult General Information and Staff Patient location during procedure: OR Anesthesiologist: Corby Gooden MD Resident: Donnell Li MD Performed: Resident Patient Condition Indications for airway management: anesthesia Patient position: sniffing Final Airway Details Final airway type: endotracheal airway Successful airway: ETT Cuffed: yes Successful intubation technique: direct laryngoscopy Adjuncts used in placement: intubating stylet Endotracheal tube insertion site: oral Blade: Shyanne Blade size: #3 ETT size (mm): 8.0 Cormack-Lehane Classification: grade IIb - view of arytenoids or posterior of glottis only Placement verified by: chest auscultation and capnometry Measured from: teeth ETT to teeth (cm): 23 Additional Comments Atraumatic. No change to dentition. Corby Gooden MD ANESTHESIA ORDERABLES Lucia l Result * Type and screen (04/08/2025 10:42 AM EDT) Only the most recent of2 resultswithin the time period is included. ABO/Rh A Negative 04/08/2025 9:19 AM EDT BLOOD BANK Antibody Screen Negative 04/08/2025 9:19 AM EDT BLOOD BANK Specimen Expiration 04/11/2025 23:59 04/08/2025 9:19 AM EDT BLOOD BANK Blood Venous blood specimen / Unknown Venipuncture / Unknown 04/08/2025 10:42 AM EDT 04/08/2025 10:53 AM EDT Richard Maldonado APRN LAB BLOOD BANK TEST ORDERABL ES Final Result BLOOD BANK [address] [place] [address], * Anti Xa Level Unfractionated Heparin (04/08/2025 4:13 AM EDT) Only the most recent of12 resultswithin the time period is included. Anti Xa Level Unfractionated Heparin 0.46 <1.00 IU/mL LAB COAGULATION METHOD 04/08/2025 4:42 AM EDT [facility] Blood Venous blood specimen / Unknown Venipuncture / Unknown 04/08/2025 4:13 AM EDT 04/08/2025 4:20 AM EDT Narrative [facility] - 04/08/2025 4:42 AM EDT Therapeutic Range: UFH Full Dose and ACS/UT protocols*: 0.30 - 0.70 IU/mL UFH Low Dose protocol*: 0.25 - 0.50 IU/mL UFH prophylaxis: Not established us Nisa Simon MD LAB BLOOD ORDERABLES Final Res ult [facility] [address] [place] [address] * (ABNORMAL) Comprehensive metabolic panel (04/07/2025 3:50 AM EDT) Only the most recent of3 resultswithin the time period is included. Glucose, Plasma 112(H) 74 - 99 mg/dL 04/07/2025 4:34 AM EDT [facility] BUN, Plasma 14 8 - 23 mg/dL 04/07/2025 4:34 AM EDT [facility] Creatinine, Plasma 1.31(H) 0.70 - 1.20 mg/dL 04/07/2025 4:34 AM EDT [facility] BUN/Creatinine Ratio 11 04/07/2025 4:34 AM EDT [facility] Sodium, Plasma 138 136 - 145 mmol/L 04/07/2025 4:34 AM EDT [facility] Potassium, Plasma 4.6 3.6 - 4.9 mmol/L 04/07/2025 4:34 AM EDT [facility] Chloride, Plasma 108(H) 97 - 107 mmol/L 04/07/2025 4:34 AM EDT [facility] CO2, Plasma 19(L) 22 - 29 mmol/L 04/07/2025 4:34 AM EDT [facility] Anion Gap 11 6 - 16 mmol/L 04/07/2025 4:34 AM EDT [facility] Total Calcium, Plasma 8.9 8.9 - 10.2 mg/dL 04/07/2025 4:34 AM EDT [facility] Total Protein 7.4 6.3 - 7.9 g/dL 04/07/2025 4:34 AM EDT [facility] Albumin, Plasma 4.0 3.5 - 5.2 g/dL 04/07/2025 4:34 AM EDT [facility] AST, Plasma 39 10 - 50 U/L 04/07/2025 4:34 AM EDT [facility] Comment:Hemolyzed, result ma y be falsely increased. ALT, Plasma 47 10 - 50 U/L 04/07/2025 4:34 AM EDT [facility] Alkaline Phosphatase, Plasma 85 40 - 115 U/L 04/07/2025 4:34 AM EDT [facility] Total Bilirubin, Plasma 0.5 0.2 - 1.1 mg/dL 04/07/2025 4:34 AM EDT [facility] eGFRcr 61.5 mL/min/1.7 3m*2 04/07/2025 4:34 AM EDT [facility] Comment:Reported eGFRcr in m L/min/1.73m2 is based the CKD-EPI 2020 equation that does not use a race coefficient. Blood Venous blood specimen / Unknown Venipuncture / Unknown 04/07/2025 3:50 AM EDT 04/07/2025 4:03 AM EDT us Cherise Frederick APRN LAB BLOOD ORDERABLES Final Res ult [facility] [address] [place] [address] * Ionized calcium, serum (04/05/2025 4:14 AM EDT) Only the most recent of3 resultswithin the time period is included. Ionized Calcium, Serum 4.7 4.6 - 5.3 mg/dL LAB HEMATOLOGY METHOD 04/05/2025 4:55 AM EDT [facility] Blood Venous blood specimen / Unknown Venipuncture / Unknown 04/05/2025 4:14 AM EDT 04/05/2025 4:22 AM EDT us Facundo BENNETT LAB BLOOD ORDERABLES Final R esult [facility] [address] [place] [address] * CT Chest wo IV Contrast (04/03/2025 10:55 AM EDT) Anatomical Region Laterality Modality Chest Computed Tomogra phy Impressions 04/03/2025 12:04 PM EDT 1. Large volume atherosclerotic calcifications of the LAD and left circumflex. 2. Normal course and caliber of the thoracic aorta with minimal atherosclerotic calcifications. CRITICAL RESULT: No. COMMUNICATION: Per this written report. By electronically signing this report, I, the attending physician, attest that I have personally reviewed the images/data for the above examination(s) and agree with the final edited report. Drafted by Bienvenido Sanders DO on 04/03/2025 11:29 AM Final report signed by Vanessa Corley DO on 04/03/2025 12:04 PM Narrative 04/03/2025 12:04 PM EDT CLINICAL INDICATION: CABG work up TECHNIQUE: Imaging of the chest was performed from thoracic inlet through upper abdomen, using spiral technique, without administration of IV contrast. Reformatted images in the coronal and sagittal planes were generated from the axial data set to facilitate diagnostic accuracy. Total DLP (Dose-Length Product): 190.77 mGy.cm. Please note: The reported value represents the total of one or more individual components during the CT acquisition on this date and at this time, and as such, the same value may appear in more than one CT report depending on the interpreting/reporting physicians. COMPARISON: None. FINDINGS: Chest: Lack of IV contrast limits evaluation of thoracic organs and vessels. Aorta/Vessels: Normal course and caliber of the thoracic aorta with minimal atherosclerotic calcifications. Left-sided aortic arch. Large volume atherosclerotic calcifications of the LAD and circumflex. Normal size of the main pulmonary artery. Pleural/Pericardial Space: No pneumothorax. No pleural effusions. No pericardial effusion. Lymph Nodes: No lymphadenopathy within the chest. Lungs: Except for minimal dependent atelectasis, the lungs are clear. No suspicious pulmonary nodules. Mediastinum: Otherwise unremarkable. Chest Wall: No chest wall hematoma or contusion. Bones: No acute fracture within the chest. Upper Abdomen: Unremarkable. Procedure Note Vanessa Corley DO - 04/03/2025 CLINICAL INDICATION: CABG work up TECHNIQUE: Imaging of the chest was performed from thoracic inlet through upperabdomen, using spiral technique, without administration of IV contrast.Reformatted images in the coronal and sagittal planes were generated fromthe axial data set to facilitate diagnostic accuracy. Total DLP (Dose-Length Product): 190.77 mGy.cm. Please note: The reportedvalue represents the total of one or more individual components during theCT acquisition on this date and at this time, and as such, the same valuemay appear in more than one CT report depending on theinterpreting/reporting physicians. COMPARISON: None. FINDINGS: Chest: Lack of IV contrast limits evaluation of thoracic organs and vessels. Aorta/Vessels: Normal course and caliber of the thoracic aorta withminimal atherosclerotic calcifications. Left-sided aortic arch. Largevolume atherosclerotic calcifications of the LAD and circumflex. Normalsize of the main pulmonary artery. Pleural/Pericardial Space: No pneumothorax. No pleural effusions. Nopericardial effusion. Lymph Nodes: No lymphadenopathy within the chest. Lungs: Except for minimal dependent atelectasis, the lungs are clear. Nosuspicious pulmonary nodules. Mediastinum: Otherwise unremarkable. Chest Wall: No chest wall hematoma or contusion. Bones: No acute fracture within the chest. Upper Abdomen: Unremarkable. IMPRESSION: 1. Large volume atherosclerotic calcifications of the LAD and leftcircumflex. 2. Normal course and caliber of the thoracic aorta with minimalatherosclerotic calcifications. CRITICAL RESULT: No. COMMUNICATION: Per this written report. By electronically signing this report, I, the attending physician, misael I have personally reviewed the images/data for the aboveexamination(s) and agree with the final edited report. Drafted by Bienvenido Sanders DO on 04/03/2025 11:29 AM Final report signed by Vanessa Corley DO on 04/03/2025 12:04 PM us Ernesto Sorto APRN IMG CT PROCEDURES Final Re sult * VAS US Venous Duplex Lower Extremity Bilateral (04/03/2025 10:41 AM EDT) Anatomical Region Laterality Modality Lower Extremities Bilateral Ultrasound Impressions 04/03/2025 4:51 PM EDT Right: Normal study. There is no evidence of acute or chronic greater saphenous thrombosis. Greater saphenous dimensions are as described above. Left: Normal study. There is no evidence of acute or chronic greater saphenous thrombosis. Greater saphenous dimensions are as described above. COMMUNICATION: Per this written report. Preliminary report signed by Megan De Paz RVT on 04/03/2025 11:20 AM By electronically signing this report, I, the attending physician, attest that I have personally reviewed the images/data for the above examination(s) and I agree with the final edited report. Drafted by Megan De Paz RVT on 04/03/2025 11:15 AM Final report signed by Robert Hutson on 04/03/2025 4:51 PM Narrative 04/03/2025 4:51 PM EDT CLINICAL INDICATION: preop planning for CABG TECHNIQUE: Non-invasive, real time duplex exam of the lower extremity venous circulation with Doppler ultrasonic waveform and spectral analysis was performed. COMPARISON: None. FINDINGS: Bilateral screening for DVT is negative. Right: The following transverse measurements of the greater saphenous were obtained: At SFJ: 0.45 x 0.50 cm, compressible, image inadvertently omitted. prox thigh: 0.57 x 0.52 cm mid thigh: 0.38 x 0.44 cm distal thigh: 0.33 x 0.39 cm at knee: 0.33 x 0.40 cm prox calf: 0.18 x 0.23 cm mid calf: 0.22 x 0.25 cm distal calf: 0.22 x 0.23 cm Left: The following transverse measurements of the greater saphenous were obtained: At SFJ: 0.70 x 0.76 cm prox thigh: 0.34 x 0.32 cm mid thigh: 0.29 x 0.30 cm, branch noted at this level distal thigh: 0.33 x 0.29 cm, branch noted at this level at knee: 0.30 x 0.31 cm, branch noted at this level prox calf: 0.24 x 0.27 cm mid calf: 0.14 x 0.13 cm distal calf: 0.14 x 0.15 cm, branch noted at this level Procedure Note Robert Hutson MD - 04/03/2025 CLINICAL INDICATION: preop planning for CABG TECHNIQUE: Non-invasive, real time duplex exam of the lower extremity venouscirculation with Doppler ultrasonic waveform and spectral analysis wasperformed. COMPARISON: None. FINDINGS: Bilateral screening for DVT is negative. Right: The following transverse measurements of the greater saphenous wereobtained: At SFJ: 0.45 x 0.50 cm, compressible, image inadvertently omitted. prox thigh: 0.57 x 0.52 cm mid thigh: 0.38 x 0.44 cm distal thigh: 0.33 x 0.39 cm at knee: 0.33 x 0.40 cm prox calf: 0.18 x 0.23 cm mid calf: 0.22 x 0.25 cm distal calf: 0.22 x 0.23 cm Left: The following transverse measurements of the greater saphenous wereobtained: At SFJ: 0.70 x 0.76 cm prox thigh: 0.34 x 0.32 cm mid thigh: 0.29 x 0.30 cm, branch noted at this level distal thigh: 0.33 x 0.29 cm, branch noted at this level at knee: 0.30 x 0.31 cm, branch noted at this level prox calf: 0.24 x 0.27 cm mid calf: 0.14 x 0.13 cm distal calf: 0.14 x 0.15 cm, branch noted at this level IMPRESSION: Right: Normal study. There is no evidence of acute or chronic greatersaphenous thrombosis. Greater saphenous dimensions are as described above. Left: Normal study. There is no evidence of acute or chronic greatersaphenous thrombosis. Greater saphenous dimensions are as described above. COMMUNICATION: Per this written report. Preliminary report signed by Megan De Paz RVT on 04/03/2025 11:20AM By electronically signing this report, I, the attending physician, attestthat I have personally reviewed the images/data for the aboveexamination(s) and I agree with the final edited report. Drafted by Megan eD Paz RVT on 04/03/2025 11:15 AM Final report signed by Robert Hutson on 04/03/2025 4:51 PM us Ernesto Sorto APRN CV VASCULAR PROCEDURES Fin al Result * VAS US Carotid Duplex Bilateral (04/03/2025 10:40 AM EDT) Anatomical Region Laterality Modality Head, Neck, Vascular Ultrasound Impressions 04/03/2025 4:50 PM EDT Right: No significant carotid plaque is demonstrated. Flow is present in the CCA, ICA, and ECA. ICA velocities do not demonstrate evidence of a hemodynamically significant stenosis (less than 50%). Left: No significant carotid plaque is demonstrated. Flow is present in the CCA, ICA, and ECA. ICA velocities do not demonstrate evidence of a hemodynamically significant stenosis (less than 50%). Vertebral artery flow is antegrade, bilaterally. Subclavian artery flow is multiphasic, bilaterally. COMMUNICATION: Per this written report. Preliminary report signed by JOE Harding on 04/03/2025 1:22 PM By electronically signing this report, I, the attending physician, attest that I have personally reviewed the images/data for the above examination(s) and I agree with the final edited report. Drafted by JOE Harding on 04/03/2025 1:20 PM Final report signed by Robert Hutson on 04/03/2025 4:50 PM Narrative 04/03/2025 4:50 PM EDT CLINICAL INDICATION: Surveillance for carotid artery stenosis. TECHNIQUE: Non-invasive, real time duplex exam of the extracranial carotid circulation with Doppler ultrasonic waveform and spectral analysis was performed. COMPARISON: None. FINDINGS: Right: CCA: 74 cm/s ECA: 59 cm/s ICA: 74/34 cm/s ICA/CCA ratio: 1 Vertebral A: 21 cm/s Subclavian A: 115 cm/s Left: CCA: 83 cm/s ECA: 63 cm/s ICA: 102/35 cm/s ICA/CCA ratio:1.2 Vertebral A: 52 cm/s Subclavian A: 132 cm/s Procedure Note Robert Hutson MD - 04/03/2025 CLINICAL INDICATION: Surveillance for carotid artery stenosis. TECHNIQUE: Non-invasive, real time duplex exam of the extracranial carotidcirculation with Doppler ultrasonic waveform and spectral analysis wasperformed. COMPARISON: None. FINDINGS: Right: CCA: 74 cm/s ECA: 59 cm/s ICA: 74/34 cm/s ICA/CCA ratio: 1 Vertebral A: 21 cm/s Subclavian A: 115 cm/s Left: CCA: 83 cm/s ECA: 63 cm/s ICA: 102/35 cm/s ICA/CCA ratio:1.2 Vertebral A: 52 cm/s Subclavian A: 132 cm/s IMPRESSION: Right: No significant carotid plaque is demonstrated. Flow is present inthe CCA, ICA, and ECA. ICA velocities do not demonstrate evidence of ahemodynamically significant stenosis (less than 50%). Left: No significant carotid plaque is demonstrated. Flow is present inthe CCA, ICA, and ECA. ICA velocities do not demonstrate evidence of ahemodynamically significant stenosis (less than 50%). Vertebral artery flow is antegrade, bilaterally. Subclavian artery flow is multiphasic, bilaterally. COMMUNICATION: Per this written report. Preliminary report signed by JOE Harding on 04/03/2025 1:22 PM By electronically signing this report, I, the attending physician, attestthat I have personally reviewed the images/data for the aboveexamination(s) and I agree with the final edited report. Drafted by JOE Harding on 04/03/2025 1:20 PM Final report signed by Robert Hutson on 04/03/2025 4:50 PM Ernesto Sorto [employer]PER[employer] CV VASCULAR PROCEDURES Fin al Result * Pulmonary function testing (04/03/2025 10:29 AM EDT) [id number] 4.71 3.28 - 5.38 L 04/03/2025 10:20 AM EDT VYAIRE PFT FVC PRED 4.32 04/03/2025 10:20 AM EDT VYAIRE PFT FVC LLN 3.28 04/03/2025 10:20 AM EDT VYAIRE PFT FVCPREZSCORE 0.59 04/03/2025 10:20 AM EDT VYAIRE PFT FVCPRE%PRED 109 % % 04/03/2025 10:20 AM EDT VYAIRE PFT FVC PREDAUTH US_Tito GLI (2012) 04/03/2025 10:20 AM EDT VYAIRE PFT FVC Z-SCORE 0.59 04/03/2025 10:20 AM EDT VYAIRE PFT FEV1 PRE 3.53 2.50 - 4.14 L 04/03/2025 10:20 AM EDT VYAIRE PFT FEV1 PRED 3.34 04/03/2025 10:20 AM EDT VYAIRE PFT FEV1 LLN 2.50 04/03/2025 10:20 AM EDT VYAIRE PFT [id number] 0.38 04/03/2025 10:20 AM EDT VYAIRE PFT FEV1_Pre%Pred 106 % % 04/03/2025 10:20 AM EDT VYAIRE PFT FEV1 PREDAUTH _Tito CABEZAS (2011) 04/03/2025 10:20 AM EDT VYAIRE PFT FEV1 Z-SCORE 0.38 04/03/2025 10:20 AM EDT VYAIRE PFT FEV1/FVC PRE 75.01 65.07 - 88.18 % 04/03/2025 10:20 AM EDT VYAIRE PFT GRR0QKRQARH 77 04/03/2025 10:20 AM EDT VYAIRE PFT QME2SRDQTT 65 04/03/2025 10:20 AM EDT VYAIRE PFT JBO2KJLSILHODVJN -0.34 04/03/20 10:20 AM EDT VYAIRE PFT OJX7JCVRHH%PRED 97 % % 10:20 AM EDT VYAIRE PFT [id number] _Shahriarkristi CABEZAS (2011) 04/03/2025 10:20 AM EDT VYAIRE PFT YSY0EZGYNTAJY -0 04/03/2025 10:20 AM EDT VYAIRE PFT YKO66-98% PRE 2.76 1.32 - 4.72 L/s 04/03/2025 10:20 AM EDT VYAIRE PFT GOU14-93%_Pred 2.76 04/03/2025 10:20 AM EDT VYAIRE PFT GZS3387%LLN 1.32 04/03/2025 10:20 AM EDT VYAIRE PFT DBV1021%PREZSCORE 0.00 025 10:20 AM EDT VYAIRE PFT ABF8046%PRE%PRED 100 % % 04/03/20 10:20 AM EDT [facility] _[facility]ito [facility] (2011) 04/03/2025 10:20 AM EDT VYAIRE PFT PEF PRE 9.84 6.52 - 10.96 L/s 04/03/2025 10:20 AM EDT VYAIRE PFT PEF PRED 8.74 04/03/2025 10:20 AM EDT VYAIRE PFT PEF LLN 6.52 04/03/2025 10:20 AM EDT VYAIRE PFT PEFPREZSCORE 0.82 04/03/2025 10:20 AM EDT VYAIRE PFT PEFPRE%PRED 113 % % 04/03/2025 10:20 AM EDT [facility] ([facility] 04/03/2025 10:20 AM EDT VYAIRE PFT PCOSVPIUMECDFGSN0WMV 23.50 19.45 - 33.83 ml/(min* mmHg) 04/03/2025 10:20 AM EDT VYAIRE PFT DLCOSINGLEBREATH PRED 26.04 04/03/2025 10:20 AM EDT VYAIRE PFT DLCOSINGLEBREATH LLN 19.45 03/17 10:20 AM EDT VYAIRE PFT DLCOSINGLEBREATH Z-SCORE -0.60 04/03/2025 10:20 AM EDT VYAIRE PFT DLCOSINGLEBREATH % PRED 90.2 % 04/03/2025 10:20 AM EDT VYAIRE PFT DLCOSINGLEBREATH [facility] Stanojevic TLCO GLI (2019) 04/03/2025 10:20 AM EDT VYAIRE PFT DLCOSINGLEBREATH Z-SCORE -0.60 04/03/2025 10:20 AM EDT VYAIRE PFT YJXJMGAXGDPRHPQOJ0XQ E 24.37 19.45 - 33.83 ml/(min* mmHg) 04/03/2025 10:20 AM EDT VYAIRE PFT DLCOCSINGLEBREATH PRED 26.04 04/03/2025 10:20 AM EDT VYAIRE PFT DLCOCSINGLEBREATH LLN 19.45 04/03/2025 10:20 AM EDT VYAIRE PFT DLCOCSINGLEBREATH Z-SCORE -0.39 04/03/2025 10:20 AM EDT VYAIRE PFT DLCOCSINGLEBREATH % PRED 93.6 % 04/03/2025 10:20 AM EDT VYAIRE PFT DLCOCSINGLEBREATH PREDAUTH Melva TLCO GLI (2019) 04/03/2025 10:20 AM EDT VYAIRE PFT [id number] 3.77 3.19 - 5.37 ml/(min* mmHg*L) 04/03/2025 10:20 AM EDT VYAIRE PFT DLCOVAPRED 4.24 04/03/2025 10:20 AM EDT VYAIRE PFT DLCOVALLN 3.19 04/03/2025 10:20 AM EDT VYAIRE PFT DLCOVAZSCORE -0.72 04/03/2025 10:20 AM EDT VYAIRE PFT DLCOVA%PRED 89.0 % 04/03/2025 10:20 AM EDT VYAIRE PFT DLCOVAPREDAUT Melva TLCO GLI (2019) 04/03/2025 10:20 AM EDT VYAIRE PFT DLCOVAZSCORE -0.72 04/03/2025 10:20 AM EDT VYAIRE PFT QSHOFEFBU6TAO 3.91 3.19 - 5.37 ml/(min* mmHg*L) 04/03/2025 10:20 AM EDT VYAIRE PFT DLCOC SB/VA PRED 4.24 04/03/20 10:20 AM EDT VYAIRE PFT DLCOC SB/VA LLN 3.19 10:20 AM EDT VYAIRE PFT DLCOC SB/VA Z-SCORE -0.50 04/03 10:20 AM EDT VYAIRE PFT DLCOC SB/VA % PRED 92.3 % 2024 10:20 AM EDT VYAIRE PFT DLCOC SB/VA [facility] Melva TLCO GLI (2019) 04/03/2025 10:20 AM EDT VYAIRE PFT DLCOC SB/VA Z-SCORE -0.50 04/03 10:20 AM EDT VYAIRE PFT LYKTROQIQJQEBH3QPO 6.23 5.00 - 7.47 L 04/03/2025 10:20 AM EDT VYAIRE PFT VASINGLEBREATH PRED 6.19 04/03 10:20 AM EDT VYAIRE PFT VASINGLEBREATH LLN 5.00 2024 10:20 AM EDT VYAIRE PFT VASINGLEBREATH Z-SCORE 0.06 04/03/2025 10:20 AM EDT VYAIRE PFT VASINGLEBREATH % PRED 100.7 % 04/03/2025 10:20 AM EDT VYAIRE PFT [facility]LEBREATH [facility] Melva TLCO [facility] (2019) 04/03/2025 10:20 AM EDT VYAIRE PFT VASINGLEBREATH Z-SCORE 0.06 04/03/2025 10:20 AM EDT VYAIRE PFT TSRORTLBNCBSERC5OAL 4.82 3.28 - 5.38 L 04/03/2025 10:20 AM EDT VYAIRE PFT IVCSINGLEBREATH PRED 4.32 03/17 10:20 AM EDT VYAIRE PFT IVCSINGLEBREATH LLN 3.28 04/03 10:20 AM EDT VYAIRE PFT IVCSINGLEBREATH Z-SCORE 0.77 04/03/2025 10:20 AM EDT VYAIRE PFT IVCSINGLEBREATH % PRED 111.4 % 04/03/2025 10:20 AM EDT VYAIRE PFT IVCSINGLEBREATH [facility] _Shahriarjer [facility] (2011) 04/03/2025 10:20 AM EDT VYAIRE PFT ANDRIY% VCMAX PRE 99.07 % 04/03/2025 10:20 AM EDT VYAIRE PFT TLC SB PRE 6.39 5.48 - 8.23 L 04/03/2025 10:20 AM EDT VYAIRE PFT TLCSINGLEBREATH PRED 6.85 /05/2025 10:20 AM EDT VYAIRE PFT TLCSINGLEBREATH LLN 5.48 04/03 10:20 AM EDT VYAIRE PFT TLCSINGLEBREATH Z-SCORE -0.55 04/03/2025 10:20 AM EDT VYAIRE PFT TLCSINGLEBREATH % PRED 93.3 % 04/03/2025 10:20 AM EDT VYAIRE PFT [facility]CSINGLEBREATH [facility] ([facility]__ 04/03/2025 10:20 AM EDT VYAIRE PFT HB PRE 13.40 g(Hb)/dL 04/03/2025 10:20 AM EDT VYAIRE PFT NEF4ZOD 6.81 5.48 - 8.23 L 04/03/2025 10:20 AM EDT VYAIRE PFT TLCPRED 6.85 04/03/2025 10:20 AM EDT VYAIRE PFT TLCLLN 5.48 04/03/2025 10:20 AM EDT VYAIRE PFT TLCULN 8.23 04/03/2025 10:20 AM EDT VYAIRE PFT TLCZSCORE -0.05 04/03/2025 10:20 AM EDT VYAIRE PFT TLC%PRED 99.4 % 04/03/2025 10:20 AM EDT V[facility]AIRE [facility] Lung volumes GLI (2019)__ 04/03/2025 10:20 AM EDT VYAIRE PFT VC0PRE 4.86 3.28 - 5.38 L 04/03/2025 10:20 AM EDT VYAIRE PFT VCPRED 4.32 04/03/2025 10:20 AM EDT VYAIRE PFT VCLLN 3.28 04/03/2025 10:20 AM EDT VYAIRE PFT VCULN 5.38 04/03/2025 10:20 AM EDT VYAIRE PFT VCZSCORE 0.84 04/03/2025 10:20 AM EDT VYAIRE PFT VC%PRED 112.4 % 04/03/2025 10:20 AM EDT VYAIRE PFT VCPREDAUTH US_Quanjer GLI (2011) 04/03/2025 10:20 AM EDT VYAIRE PFT IC0PRE 4.13 2.41 - 4.42 L 04/03/2025 10:20 AM EDT VYAIRE PFT ICPRED 3.44 04/03/2025 10:20 AM EDT VYAIRE PFT ICLLN 2.41 04/03/2025 10:20 AM EDT VYAIRE PFT ICULN 4.42 04/03/2025 10:20 AM EDT VYAIRE PFT IC Z-SCORE 1.16 04/03/2025 10:20 AM EDT VYAIRE PFT IC%PRED 120.2 % 04/03/2025 10:20 AM EDT VYAIRE PFT ICPREDAUTH Mario Lung volumes GLI (2019)__ 04/03/2025 10:20 AM EDT VYAIRE PFT VFOKMSUC5MKV 2.67 2.41 - 4.83 L 04/03/2025 10:20 AM EDT VYAIRE PFT FRCPLETH PRED 3.48 04/03/2025 10:20 AM EDT VYAIRE PFT FRCPLETH LLN 2.41 04/03/2025 10:20 AM EDT VYAIRE PFT FRCPLETH ULN 4.83 04/03/2025 10:20 AM EDT VYAIRE PFT FRCPLETH Z-SCORE -1.20 04/03/20 10:20 AM EDT VYAIRE PFT FRCPLETH % PRED 76.8 % 10:20 AM EDT VYAIRE PFT FRCPLETH PREDAUTH Mario Lung volumes GLI (2019)__ 04/03/2025 10:20 AM EDT VYAIRE PFT ENK3YAM 0.73 0.43 - 2.34 L 04/03/2025 10:20 AM EDT VYAIRE PFT ERVPRED 1.22 04/03/2025 10:20 AM EDT VYAIRE PFT ERVLLN 0.43 04/03/2025 10:20 AM EDT VYAIRE PFT ERVULN 2.34 04/03/2025 10:20 AM EDT VYAIRE PFT ERV Z-SCORE -0.94 04/03/2025 10:20 AM EDT VYAIRE PFT ERV%PRED 59.7 % 04/03/2025 10:20 AM EDT VYAIRE PFT ERVPREDAUTH Mario Lung volumes GLI (2019)__ 04/03/2025 10:20 AM EDT VYAIRE PFT RV0PRE 1.95 1.33 - 3.17 L 04/03/2025 10:20 AM EDT VYAIRE PFT RVPRED 2.17 04/03/2025 10:20 AM EDT VYAIRE PFT RVLLN 1.33 04/03/2025 10:20 AM EDT VYAIRE PFT RVULN 3.17 04/03/2025 10:20 AM EDT VYAIRE PFT RVZSCORE -0.41 04/03/2025 10:20 AM EDT VYAIRE PFT RV%PRED 89.6 % 04/03/2025 10:20 AM EDT VYAIRE PFT RVPREDAUTH Mario Lung volumes GLI (2019)__ 04/03/2025 10:20 AM EDT VYAIRE PFT RV%BOL7HMQ 28.61 21.33 - 41.51 % 04/03/2025 10:20 AM EDT VYAIRE PFT RV%TLCPRED 31 04/03/2025 10:20 AM EDT VYAIRE PFT RV%TLCLLN 21 04/03/2025 10:20 AM EDT VYAIRE PFT RV%TLCULN 42 04/03/2025 10:20 AM EDT VYAIRE PFT RV%TLCZSCORE -0.42 04/03/2025 10:20 AM EDT VYAIRE PFT RV%TLC%PRED 91.7 % 04/03/2025 10:20 AM EDT VYAIRE PFT RV%TLCPREDAUTH Mario Lung volumes GLI (2019)__ 04/03/2025 10:20 AM EDT VYAIRE PFT Anatomical Region Laterality Modality PFT 04/03/2025 9:51 AM EDT Narrative 04/08/2025 8:18 AM EDT Pulmonary Function Testing Report Brandt Malik 60 y.o. underwent pulmonary function testing today at the [facility]. The patient underwent spirometry, lung volumes by body plethysmography, and diffusion capacity testing testing. All tests were appropriately administered via ATS/ERS criteria. Spirometry: Test quality: A. Test is acceptable and useable for interpretation. Normal spirometry Lung Volumes: Test Quality: Appropriate QA standards were met. Normal lung volumes. Diffusion Capacity: Test Quality: A. Data meets the highest standards for acceptability. Diffusion capacity corrected for Hb is normal. Trend: There are no prior studies for comparison. us Ernesto Sorto APRN PFT ORDERABLES Final Resu lt * (ABNORMAL) Troponin T, High Sensitivity, 2 Hour, Plasma (04/03/2025 9:27 AM EDT) Pathologist [facility] Troponin T, High Sensitivity, 2 Hour 2,329(H) <19 ng/L 04/03/2025 10:09 AM EDT [facility] Troponin Delta 325(H) <10 ng/L 04/03/2025 10:09 AM EDT [facility] Troponin Delta Interpretation Significant 04/03/2025 10:09 AM EDT [facility] Comment:Significant change i n Troponin observed (from baseline). Troponin values greater than the 99th%ile with a rising or falling pattern (a change of >= 10 ng/L between the baseline and 2 hour samples) highly suggests acute cardiac injury. Acute cardiac injury does not equate to acute myocardial infarction. Additional clinical criteria are necessary for the diagnosis of acute myocardial infarction. Blood Venous blood specimen / Unknown Venipuncture / Unknown 04/03/2025 9:27 AM EDT 04/03/2025 9:38 AM EDT us Ernesto Sorto APRN LAB BLOOD ORDERABLES Final Result [facility] [address] [place] [address] * Platelet P2Y12 Receptor Blockade, Verify Now PRU (04/03/2025 9:27 AM EDT) P2Y12 PRU 217 194 - 418 PRU 04/03/2025 9:54 AM EDT [facility] Blood Venous blood specimen / Unknown Venipuncture / Unknown 04/03/2025 9:27 AM EDT 04/03/2025 9:38 AM EDT Narrative [facility] - 04/03/2025 9:54 AM EDT P2Y12 Result Interpretation: P2Y12 values < 194 PRU (low end of reference range) are specific evidence of a P2Y12 inhibitor effect. Test results are in P2Y12 reaction units (PRU). This measures the extent of platelet aggregation in the presence of P2Y12 inhibitor drugs such as clopidogrel (Plavix), prasugrel (Effient), ticagrelor (Brilinta), and ticlopidine (Ticlid). Patients who have been treated with Glycoprotein IIb/IIIa inhibitors should not be tested until platelet function has recovered. This time period is approximately 14 days after discontinuation of abciximab (ReoPro) and up to 48 hours after discontinuation of eptifibatide (Integrilin) and tirofiban (Aggrastat). Result may not be valid for platelet counts < 120 k/uL. The P2Y12 test results should be interpreted in conjunction with other clinical and laboratory data available to the clinician. Testing performed in the [facility]. us Ernesto Sorto [employer]PER[employer] LAB BLOOD ORDERABLES Final Result [facility] [address] [place] [address] * ECHO, ADULT TRANSTHORACIC COMPLETE (04/03/2025 8:30 AM EDT) BSA 2.26 m2 DARLENE ISCV Height 175.3 DARLENE ISCV Weight 111.6 DARLENE ISCV LVIDd 40 mm DARLENE ISCV IVSd 10 mm DARLENE ISCV LVPWd 9 mm DARLENE ISCV LV MASS(C)D 118 g DARLENE ISCV [facility] CV ECHO LV MASS INDEX 52 g/m2 DARLENE ISCV LV RWT 0.48 mm DARLENE ISCV LVIDs 36 mm DARLENE ISCV LVOT diam 18 mm DARLENE ISCV LVOT AREA 2.5 cm2 DARLENE ISCV Ao Root Diam 29 mm DARLENE ISCV Asc Ao Diam 33 mm DARLENE ISCV LAV(MOD-4ch) 47 mL DARLENE ISCV LV EDV(MOD-4ch) 133 mL DARLENE ISCV LV ESV(MOD4ch) 79 mL DARLENE ISCV EF(MOD-sp4) 41 % DARLENE ISCV MV E Vmax 79.7 cm/s DARLENE ISCV MV A Vmax 83.3 cm/s DARLENE ISCV MV E/A 1.0 cm/s DARLENE ISCV LV Lat e' Velocity 8.2 cm/s DARLENE ISCV Lat E/e' 9.7 DARLENE ISCV LV Sept e' John 6.2 cm/s DARLENE ISCV Sep E/e' 12.9 DARLENE ISCV Avg E/e' 11.3 DARLENE ISCV RA MOD 4Ch 18 mL DARLENE ISCV JOANA 8 mL/m2 DARLENE ISCV RV base 34 mm DARLENE ISCV RV Mid 30 mm DARLENE ISCV RV s' John 9.6 cm/s DARLENE ISCV TAPSE 16 mm DARLENE ISCV LAV(MOD-bp) Indexed 19 mL/m2 DARLENE ISCV LAV(MOD-2ch) 38 mL DARLENE ISCV LV EDV(MOD-2ch) 145 mL DARLENE ISCV EDV(MOD-bp) 139 mL DARLENE ISCV LV ESV(MOD2ch) 81 mL DARLENE ISCV EF(MOD-sp2) 44 % DARLENE ISCV ESV(MOD-bp) 80 mL DARLENE ISCV EF(MOD-bp) 42 % DARLENE ISCV LVLs ap2 8.0 mm DARLENE ISCV IVC Max Size 23 mm DARLENE ISCV PA acc time 80 msec DARLENE ISCV mean PAP 43 mmHg DARLENE ISCV Anatomical Region Laterality Modality Echocardiography Narrative 04/03/2025 10:22 AM EDT Left Ventricle: Based on the linear dimension and/or 2D volumes, the left ventricle is normal in size. The left ventricular systolic function is mildly reduced. The LVEF as measured by biplane volume is 42%. The diastolic function is abnormal. See diagram below for wall motion findings. Right Ventricle: The right ventricle is normal in size. The right ventricular systolic function is mildly reduced. The spectral Doppler envelope of TR is not adequate for calculating the right ventricular systolic pressure (RVSP). Based upon other 2D and Doppler features, the RVSP is likely elevated. Pericardium: No pericardial effusion. There is no recent study available for direct qnhx-pw-wzul comparison. Left Ventricle Based on the linear dimension and/or 2D volumes, the left ventricle is normal in size. There is concentric remodeling. The left ventricular systolic function is mildly reduced. The LVEF as measured by biplane volume is 42%. The diastolic function is abnormal. There is grade I (mild) diastolic dysfunction. See diagram below for wall motion findings. Right Ventricle The right ventricle is normal in size. The right ventricular systolic function is mildly reduced. The spectral Doppler envelope of TR is not adequate for calculating the right ventricular systolic pressure (RVSP). Based upon other 2D and Doppler features, the RVSP is likely elevated. Left Atrium The left atrial size is normal with an indexed volume of 16-34 mL/m2. The interatrial septum is intact with no evidence for an atrial septal defect. Right Atrium The right atrial volume index is normal (18-32mL/m2). IVC/SVC The IVC was not well visualized, and an assumed pressure of 8mmHg was used for calculations. Mitral Valve The mitral valve leaflets are normal in appearance with no evidence of mitral valve prolapse. There is mild mitral annular calcification. There is trace mitral regurgitation. There is no mitral stenosis. Tricuspid Valve The tricuspid valve is normal in appearance. There is trace tricuspid regurgitation. There is no tricuspid stenosis. Aortic Valve The aortic valve was not well visualized due to poor image quality. The aortic valve appears to be trileaflet. There is no valvular regurgitation. There is no hemodynamically significant valvular aortic stenosis. Pulmonic Valve The pulmonic valve was not well visualized. There is no pulmonic regurgitation. There is no pulmonic stenosis. Pericardium No pericardial effusion. Great Vessels The aortic root is normal in size. The sinus of Valsalva (aortic root) diameter is 29 mm by leading edge to leading edge method. The main pulmonary artery is not well visualized. Study Details A complete transthoracic echocardiogram using two-dimensional (2D), m-mode, color and spectral flow Doppler imaging was performed. During the study the apical, parasternal, subcostal and suprasternal view was captured. Overall the study quality was adequate. Heart rate was normal. Height: 175.3 cm. Weight: 111.6 kg. BSA: 2.26 m2. The heart rhythm during this exam was most suggestive of a sinus rhythm. Study Recommendation There is no recent study available for direct rzms-nr-rjmi comparison. Wall Scoring Baseline Score Index: 1.53 The following segments are hypokinetic: basal anterior, basal inferoseptal, basal inferior, basal inferolateral, basal anterolateral, mid anterior, mid inferior, mid inferolateral and mid anterolateral. All other segments are normal. Ernesto Sroto [employer]PERVIS[employer] CV ECHO PROCEDURES Final R esult * (ABNORMAL) Troponin T, High Sensitivity, 0 Hour Plasma, Reflex to 2 Hour (04/03/2025 6:55 AM EDT) Pathologist [facility] Troponin T, High Sensitivity, 0 Hour 2,654(H) <19 ng/L 04/03/2025 7:34 AM EDT [facility] Blood Venous blood specimen / Unknown Venipuncture / Unknown 04/03/2025 6:55 AM EDT 04/03/2025 7:03 AM EDT Ernesto Sorto [employer] LAB BLOOD ORDERABLES Final Result Performing Organization Address City/[facility]/ZIP Co de Phone Number [facility] [address] [place] [address] * N-Terminal Probnp, Plasma (04/03/2025 6:55 AM EDT) [facility] N-Terminal, PROBNP, Plasma 881 0 - 899 pg/mL 04/03/2025 7:34 AM EDT [facility] Blood Venous blood specimen / Unknown Venipuncture / Unknown 04/03/2025 6:55 AM EDT 04/03/2025 7:03 AM EDT Ernesto Sorto APRN LAB BLOOD ORDERABLES Final Result [facility] [address] [place] [address] * Fibrinogen, Quantitative (Clottable) (04/03/2025 6:55 AM EDT) Fibrinogen, Quantitative (Clottable) 360 208 - 459 mg/dL LAB COAGULATION METHOD 04/03/2025 8:20 AM EDT [facility] Blood Venous blood specimen / Unknown Venipuncture / Unknown 04/03/2025 6:55 AM EDT 04/03/2025 7:03 AM EDT us Ernesto Sorto [employer] LAB BLOOD ORDERABLES Final Result [facility] [address] [place] [address] * (ABNORMAL) CBC and Differential (04/03/2025 6:55 AM EDT) WBC Count 11.81(H) 3.70 - 10.30 10*3/uL LAB HEMATOLOGY METHOD 04/03/2025 7:11 AM EDT [facility] RBC Count 4.82 4.60 - 6.10 10*6/uL LAB HEMATOLOGY METHOD 04/03/2025 7:11 AM EDT [facility] HGB 13.4(L) 13.7 - 17.5 g/dL LAB HEMATOLOGY METHOD 04/03/2025 7:11 AM EDT [facility] HCT 40.2 40.0 - 51.0 % LAB HEMATOLOGY METHOD 04/03/2025 7:11 AM EDT [facility] Platelet Count 183 155 - 369 10*3/uL LAB HEMATOLOGY METHOD 04/03/2025 7:11 AM EDT [facility] MCV 83 79 - 98 fL LAB HEMATOLOGY METHOD 04/03/2025 7:11 AM EDT [facility] MCH 27.8 26.0 - 32.0 pg LAB HEMATOLOGY METHOD 04/03/2025 7:11 AM EDT [facility] MCHC 33.3 30.7 - 35.5 g/dL LAB HEMATOLOGY METHOD 04/03/2025 7:11 AM EDT [facility] RDW 12.9 11.5 - 14.5 % LAB HEMATOLOGY METHOD 04/03/2025 7:11 AM EDT [facility] MPV 10.3 8.8 - 12.5 fL LAB HEMATOLOGY METHOD 04/03/2025 7:11 AM EDT [facility] nRBC 0.0 <=0.0 per 100 WBCs LAB HEMATOLOGY METHOD 04/03/2025 7:11 AM EDT [facility] Differential Type Automated LAB HEMATOLOGY METHOD 04/03/2025 7:11 AM EDT [facility] Neutrophils % 66 % LAB HEMATOLOGY METHOD 04/03/2025 7:11 AM EDT [facility] Lymphocytes % 21 % LAB HEMATOLOGY METHOD 04/03/2025 7:11 AM EDT [facility] Monocytes % 9 % LAB HEMATOLOGY METHOD 04/03/2025 7:11 AM EDT [facility] Eosinophils % 2 % LAB HEMATOLOGY METHOD 04/03/2025 7:11 AM EDT [facility] Basophils % 1 % LAB HEMATOLOGY METHOD 04/03/2025 7:11 AM EDT [facility] Immature Granulocytes % 1 % LAB HEMATOLOGY METHOD 04/03/2025 7:11 AM EDT [facility] Neutrophils Absolute 7.90(H) 1.60 - 6.10 10*3/uL LAB HEMATOLOGY METHOD 04/03/2025 7:11 AM EDT [facility] Lymphocytes Absolute 2.45 1.20 - 3.90 10*3/uL LAB HEMATOLOGY METHOD 04/03/2025 7:11 AM EDT [facility] Monocytes Absolute 1.10(H) 0.30 - 0.90 10*3/uL LAB HEMATOLOGY METHOD 04/03/2025 7:11 AM EDT [facility] Eosinophils Absolute 0.21 0.00 - 0.50 10*3/uL LAB HEMATOLOGY METHOD 04/03/2025 7:11 AM EDT [facility] Basophils Absolute 0.07 0.00 - 0.10 10*3/uL LAB HEMATOLOGY METHOD 04/03/2025 7:11 AM EDT [facility] Immature Granulocytes Absolute 0.08(H) 0.00 - 0.06 10*3/uL LAB HEMATOLOGY METHOD 04/03/2025 7:11 AM EDT [facility] Blood Venous blood specimen / Unknown Venipuncture / Unknown 04/03/2025 6:55 AM EDT 04/03/2025 7:03 AM EDT [facility] - 04/03/2025 7:11 AM EDT Therapeutic decision making should be based on absolute values, rather than percentages. Ernesto Sorto [employer] LAB BLOOD ORDERABLES Final Result Performing Organization Address [facility]/ZIP Co de Phone Number [facility] [address] [place] [address] * (ABNORMAL) Hemoglobin A1c (04/03/2025 6:55 AM EDT) Hemoglobin A1c 6.8(H) <5.7 % 04/03/2025 12:13 PM EDT [facility] Blood Venous blood specimen / Unknown Venipuncture / Unknown 04/03/2025 6:55 AM EDT 04/03/2025 7:03 AM EDT Narrative [facility] - 04/03/2025 12:13 PM EDT HA1C Interpretive Data: Diagnosis of Diabetes: Diabetic > or = 6.5% Pre-diabetic 5.7 to 6.4% Non-diabetic < or = 5.6% Glycemic Targets for Type I and Type II Diabetics: Non- Adults <7.0% Adults <6.0% Children and Adolescents <7.5% Source: [employer]. Standards of medical care in diabetes,2017. Diabetes Care.2017:40 (suppl 1):S1-S135. Ernesto Sorto [employer] LAB BLOOD ORDERABLES Final Result Performing Organization Address [facility] Co de Phone Number [facility] [address] [place] [address] * (ABNORMAL) Lipid panel (04/03/2025 6:55 AM EDT) Cholesterol, Plasma 195 <200 mg/dL 04/03/2025 7:34 AM EDT [facility] Comment: Cholesterol Reference Range (age >17 years): Desirable <200 mg/dL Borderline 200 to 239 mg/dL Undesirable >239 mg/dL HDL 43 >=40 mg/dL 04/03/2025 7:34 AM EDT [facility] Comment: HDL Cholesterol Reference Ranges (age >17 years): Female, acceptable > or = 50 mg/dL Male, acceptable > or = 40 mg/dL Triglycerides, Plasma 99 <150 mg/dL 04/03/2025 7:34 AM EDT [facility] Comment: Triglyceride Reference Range (age >17 years): Desirable: <150 mg/dL Borderline high: 150 to 199 mg/dL High: 200 to 499 mg/dL Very high: >499 mg/dL Increased risk of pancreatitis: >1000 mg/dL Cholesterol/HDL Ratio 5 04/03/2025 7:34 AM EDT [facility] LDL, Calculated 134(H) <100 mg/dL 7:34 AM EDT [facility] Comment: LDL Cholesterol Reference Range (age >17 years): Optimal: <100 mg/dL Near or above optimal: 100 - 129 mg/dL Borderline high: 130 - 159 mg/dL High: 160 - 189 mg/dL Very high: >189 mg/dL LDL Cholesterol Reference Range (age <18 years): Desirable: <110 mg/dL Borderline: 110 - 129 mg/dL Undesirable: >130 mg/dL LDL Cholesterol is calculated using the Molina/NIH equation. Fasting greater than or equal to 12 hours? Unknown 04/03/2025 7:34 AM EDT [facility] Blood Venous blood specimen / Unknown Venipuncture / Unknown 04/03/2025 6:55 AM EDT 04/03/2025 7:03 AM EDT us Coral Hayes APRN, DNP LAB BLOOD ORDERABLES Final Result [facility] [address] [place] [address] * IR OUTSIDE IMAGES (04/03/2025 2:47 AM EDT) Anatomical Region Laterality Modality X-Ray Angiograph y 04/03/2025 2:47 AM EDT us External Provider IMG IR PROCEDURES Final Result * US OUTSIDE IMAGES (04/02/2025 4:19 PM EDT) Anatomical Region Laterality Modality Ultrasound 04/02/2025 4:19 PM EDT us External Provider IMG US PROCEDURES Final Result * XR THORACIC OUTSIDE IMAGES (04/02/2025 1:54 PM EDT) Anatomical Region Laterality Modality Radiographic Elizabeth ging 04/02/2025 1:54 PM EDT External Provider IMG XR PROCEDURES Final Result from Last 3 Months Insurance ANTH Advance Directives * Full Code (Latest Code Status on File) Date Activated Date Inactivated Comments 04/05/2025 2:13 PM 04/13/2025 3:30 PM Question Answer Comments I have reviewed the capacity from the link above and, if needed, have updated to appropriate status: Yes Care Teams Informatics Physician Relationship Specialty Start Date End Date Graciela Mario PA [address] [place] [address] PCP - General 03/03/25 Jagruti Ferrari MD [address] [place] [address] [place] [address] Referring Physician 04/09/25
--- NOTE | 2025-07-02 14:30 | CA_ITS ---
APPROVED REPORT EXAM: Comprehensive 2D, Doppler, and color-flow Echocardiogram Swim Coach: Abbey Walker RVT Ht: 5 ft 9 in Wt: 230lbs BSA: 2.19 BP: 136/84 mmHg Indications: CORONARY ARTERY DISEASE 2D Dimensions LA Volume 47.20 mL LA Volume Index 21.55 mL/m2 (M/F) 16-34 M-Mode Dimensions RVDd 2.95 cm (0.9-2.6) LA Diam 4.00 cm (1.9-4.0) LVDd 5.11 cm (3.5-5.7) LVDs 3.33 cm (3.5-5.7) IVSd 0.80 cm (0.6-1.1) PWd 0.45 cm (0.6-1.1) EF (Teich) 63.70% FS 34.80% EDV (Teich) 124.40 mL TAPSE 2.56 (<1.7) ESV (Teich) 45.10 mL LV Diastology E Decel Time 160 (160-240 msec) E/A Ratio 1.0 Aortic Valve NADIA Index 1.75 cm2/m2 AoV Peak John. 116.0 (50-130 cm/s) AO Peak GR. 5.40 mmHg AO Mean GR. 3.30 (<5 mmHg) AO VTI 21.4 (18-25 cm) NADIA (VTI) 3.93 (2.5-4.5 cm2) Mitral Valve MV E Max John. 98.0 (40-130 cm/s) MV A Velocity 99.0 (40-130 cm/s) E/A Ratio 0.99 MV PHT 47.0 ms Pulmonary Valve PV Peak Velocity 82.0 (50-150 cm/s) Left Ventricle The left ventricle is normal size. Left ventricular systolic function is normal. The left ventricular ejection fraction is within the normal range. There is normal left ventricular wall thickness. There is normal LV segmental wall motion. The left ventricular diastolic function is normal. LVEF is 55% Right Ventricle The right ventricle is normal size. The right ventricular systolic function is normal. Atria The left atrium is mildly dilated. The right atrium size is normal. There is no color Doppler evidence of interatrial shunt. Aortic Valve The aortic valve is mildly thickened. There is no hemodynamically significant aortic valvular stenosis. No aortic regurgitation is present. Mitral Valve The mitral valve is normal in structure. No evidence of mitral valve stenosis. Trace mitral regurgitation is present. Tricuspid Valve The tricuspid valve leaflets are thin and pliable. Trace tricuspid regurgitation. There is insufficient TR jet to estimate RVSP. Pulmonic Valve The pulmonary valve is grossly normal in structure. Trace pulmonic valve regurgitation is present. Great Vessels The aortic root is normal in size. IVC is normal in size and collapses >50% with inspiration. Pericardium There is no pericardial effusion. Other Information Study Quality: Fair Conclusion Normal biventricular systolic function. Mild LA dilation. No significant valvular stenosis or regurgitation. Electronically signed by : Zeina De Los Santos MD 07/06/2025 22:01:21
== END 2025-07-02 23:59 | disposition home or self-care (01) ==
LOC: RT 14:18
PROVIDERS: PCP Physician Assistant; Visit Provider Physician Assistant
DX: I11.9 Hypertensive heart disease without heart failure (principal); I25.10 Atherosclerotic heart disease of native coronary artery without angina pectoris
CPT/HCPCS: 93306